=== PATIENT | male | born 1955 | race Caucasian/White ===

== ENCOUNTER 2019-06-26 10:48 | Inpatient (IN) | payer OTHER ==
[2019-06-26] VITALS (43 sets, daily range): BP systolic 74–149; BP diastolic 46–73
[~2019-06-26] VITALS: Ht 188 cm; Wt 71.4 kg
[2019-06-26 11:07] LABS: HEMATOCRIT 46.7 % (42.0-52.0); HEMOGLOBIN 15.6 gm/dL (14.0-18.0); MCH 31.1 pg (26.0-34.0); MCHC 33.4 g/dL (28.0-37.0); PLATELET COUNT 251 thou/uL (150-400); RBC 5.02 mil/uL (4.50-6.00); RDW 14.3 % (10.5-14.5)
[2019-06-26 11:24] LABS: ANION GAP 11 mmol/L (7-16); BUN 22 mg/dL (7-18); CALCIUM 8.8 mg/dL (8.5-10.1); CHLORIDE 96 mmol/L (98-107); CO2 29 mmol/L (21-32); CREATININE 1.1 mg/dL (0.7-1.3); GLUCOSE 117 mg/dL (74-106); POTASSIUM 3.5 mmol/L (3.5-5.1); SODIUM 136 mmol/L (136-145)
[2019-06-26 11:28] LABS: ALBUMIN 1.8 g/dL (3.4-5.0); DIRECT BILIRUBIN 2.1 mg/dL (<0.1-0.3); TOTAL BILIRUBIN 2.4 mg/dL (<0.1-1.0); TOTAL PROTEIN 6.7 g/dL (6.4-8.2)
[2019-06-26 11:32] LABS: TROPONIN-I <0.06 ng/mL (<0.06)
[2019-06-26 11:33] LABS: ABSOLUTE NEUTROPHILS 20.9 thou/uL (1.4-8.2); PLATELET ESTIMATE NORMAL
[2019-06-26 12:08] LABS: APTT 29.3 Seconds (24.5-32.8); INR 1.2; PROTIME 12.8 Seconds (9.3-11.4)
[2019-06-26 12:21] LABS: BE(vivo) -0.8 mmol/L (-2 to +3); HCO3 23.9 mmol/L (22.0-26.0); PCO2 39.5 mmHg (35.0-45.0); PO2 71.2 mmHg (80.0-100.0); pH 7.399 (7.360-7.450); sO2 94.4 % (92.0-98.0)
[2019-06-26 12:24] LABS: AMP/METHAMP POSITIVE (Negative); BARBITURATES Negative (Negative); BENZODIAZEPINES Negative (Negative); COCAINE Negative (Negative); METHADONE Negative (Negative); OPIATES Negative (Negative); PCP Negative (Negative)
[2019-06-26 13:21] LABS: HCO3 24.5 mmol/L (22.0-26.0); PCO2 58.1 mmHg (35.0-45.0); PO2 91.9 mmHg (80.0-100.0); pH 7.242 (7.360-7.450); sO2 95.6 % (92.0-98.0)
[2019-06-26 16:11] LABS: BE(vivo) -3.5 mmol/L (-2 to +3); HCO3 26.6 mmol/L (22.0-26.0); PO2 151.3 mmHg (80.0-100.0); sO2 98.4 % (92.0-98.0)
[2019-06-26 16:12] LABS: PCO2 70.8 mmHg (35.0-45.0); pH 7.192 (7.360-7.450)
--- NOTE | 2019-06-26 16:45 | EKG ---
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
--- NOTE | 2019-06-26 16:45 | EKG ---
[address] [place] [address] ELECTROCARDIOGRAM REPORT Name: PREETIERICK ELLISYN Room #: 247-P ADM IN M.R.#: [id number] Admission: 06/26/19 Attend Phys: Ricarda Phan MD Discharge: Date of : 51 Report #: [id number] THIS REPORT FOR: //name// [facility] ED Test Date: 2019-06-26 Test Time: 11:02:35 Pat Name: ERICK ÁLVAREZ Department: Room: 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 Electronically Signed On 06-26-2019 16:45:35 CDT by Frank Mcgee [email or web address] <ELECTRONICALLY SIGNED> By: Frank Mcgee MD 06/26/19 1645 1102 01 Frank Mcgee MD /BEVERLY
--- NOTE | 2019-06-26 16:46 | EKG ---
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
--- NOTE | 2019-06-26 17:29 | NUR ---
NURSE CALLED CONSULT TO DR. SHARIF. HE RETURNED CALL AND EXPRESSED TO PLEASE CALL DR. DELFINA EDWARDS WHO IS COVERING FOR HIM AT THIS TIME. NURSE CALLED CONSULT TO DR. EDWARDS.
[2019-06-26 17:41] LABS: CLARITY CLOUDY; COLOR YELLOW; SOURCE PLEURAL; TOTAL VOLUME 30 mL
[2019-06-26 17:42] LABS: SOURCE PLEURAL
[2019-06-26 17:48] LABS: BE(vivo) -1.3 mmol/L (-2 to +3); HCO3 25.4 mmol/L (22.0-26.0); PCO2 50.1 mmHg (35.0-45.0); PO2 157.8 mmHg (80.0-100.0); sO2 98.9 % (92.0-98.0)
[2019-06-26 17:49] LABS: URINE BILIRUBIN NEGATIVE (Negative); URINE BLOOD NEGATIVE (Negative); URINE CLARITY CLEAR; URINE COLOR YELLOW; URINE GLUCOSE-RANDOM* NEGATIVE (Negative); URINE KETONES NEGATIVE (Negative); URINE LEUKOCYTES-REFLEX NEGATIVE (Negative); URINE NITRITE-REFLEX NEGATIVE (Negative); URINE PROTEIN (DIPSTICK) NEGATIVE (Negative); URINE SPECIFIC GRAVITY <= 1.005 (1.005-1.035)
[2019-06-26 17:49] LABS: pH 7.323 (7.360-7.450)
[2019-06-26 18:18] LABS: BF NUCLEATED CELLS 57982; BF RBC 19719
--- NOTE | 2019-06-26 18:40 | NUR ---
CONSULTED TO PLACE A PICC FOR A PATIENT NEEDING ACCESS FOR SEPSIS. ORDER AND CONSENT NOTED. CONSENT PER MEDICAL NECESSITY- THE PATIENT IS INTUBATED AND SEDATED AND NO FAMILY AVAILABLE. THE RIGHT UPPER ARM BASILIC WAS WIDLEY PATENT. A #5F TRIPLE LUMEN POWER PICC WAS PLACED AFTER A BEDSIDE TIMEOUT WAS COMPLETED. THE PICC WAS TRIMMED TO 44CM AND ADVANCED WITHOUT DIFFICULTY. A STAT CHEST XRAY CONFIRMED THE LINE TO BE IN GOOD POSITION AT THE LOWER SVC. LINE RELEASED FOR USE
[2019-06-26 19:44] LABS: BF MACROPHAGE 8; BF NEUTROPHILS 84
[2019-06-26 19:52] LABS: CREATININE 1.4 mg/dL (0.7-1.3); POTASSIUM 3.8 mmol/L (3.5-5.1)
--- NOTE | 2019-06-26 21:13 | NUR ---
PATIENT ARRIVED TO ICU AT 1600 TODAY. COMPLETE ADMISSION WAS UNOBTAINABLE SECONDARY TO NO FAMILY CONTACT. FAMILY DID LATER CALL AND CONTACT INFORMATION OBTAINED. ONE IV PRESENT ON TRANSFER TO ICU, NO SWIFT. CLOTHES WERE ON AND PATIENT WAS SATURATED IN URINE. HE WAS CLEANED AND CLOTHES WERE REMOVED. NURSE CALLED DR. HENRIQUEZ FOR CONSULT AND ORDERS RECEIVED. ABG RESULTS WERE NOTED TO DR. HENRIQUEZ AND SEPSIS PROTOCOL WAS INITIATED AT 1640. PICC LINE WAS PLACED. ONCE CONFIRMATION OF PLACEMENT OBTAINED, CVP WAS STARTED. DR. HENRIQUEZ WAS UPDATED ON 3 HOUR SEPSIS ISIS AT 1900 WHEN HE ROUNDED. PROPFOL LOWERED PATIENTS BLOOD PRESSURE SO VERSED WAS USED FOR SEDATION, WHICH DID NOT HELP HIM WITH VENTILATOR MANAGEMENT. PATIENT WAS SEVERLY AGGITATED AND ATTEMPTING TO EXTUBATE HIMSELF AND GET OUT OF BED. VERSED ASSISTED IN HIS COMFORT EVIDENCED BY NONE OF THE PREVIOUS MENTIONED. NURSE TALKED WITH DR. HENRIQUEZ ABOUT LARGE AMOUNT OF INCONTENENCE AND UNABLE TO PLACE SWIFT CATHETER, SECONDARY TO THE TUBE NOT ADVANCING. HE EXPRESSED TO CALL PRIMARY. THIS WAS DONE, DR. CHAUDHARY EXPRESSED TO PLACE A CONDOM CATHETER, WHICH WAS DONE. NO URINE OUTPUT NOTED AFTER THESE EVENTS. BLADDER SCAN WAS PERFORMED AND THE RESULTS WERE 385ML. THIS WAS INFORMED TO DR. HENRIQUEZ WHO EXPRESSED TO NOTIFY PRIMARY. REPORT WAS GIVEN TO REFERRAL MANAGER RN FOR CONTINUATION OF CARE. PATIENT TOO ACUTE TO PROGRESS TOWARDS PLAN OF CARE GOALS OF HEMODYNAMIC STABILITY AND EXTUBATION.
[2019-06-26 21:24] LABS: CALCIUM 7.6 mg/dL (8.5-10.1); POTASSIUM 3.9 mmol/L (3.5-5.1)
[2019-06-27] VITALS (94 sets, daily range): BP systolic 85–116; BP diastolic 50–65
[2019-06-27 01:37] LABS: CALCIUM 7.5 mg/dL (8.5-10.1); CREATININE 1.1 mg/dL (0.7-1.3)
[2019-06-27 05:03] LABS: BE(vivo) -2.5 mmol/L (-2 to +3); HCO3 24.8 mmol/L (22.0-26.0); PCO2 53.4 mmHg (35.0-45.0); PO2 95.1 mmHg (80.0-100.0); pH 7.285 (7.360-7.450); sO2 96.4 % (92.0-98.0)
[2019-06-27 05:11] LABS: GLYCOHEMOGLOBIN (HGB A1C) 5.9 % (4.8-5.6)
[2019-06-27 05:11] LABS: BODY FLUID AMYLASE 28 U/L (()); BODY FLUID GLUCOSE 2 mg/dL (()); BODY FLUID LDH 4957 IU/L (()); BODY FLUID PROTEIN 3.7 g/dL (())
[2019-06-27 05:43] LABS: HEMATOCRIT 38.8 % (42.0-52.0); MCH 31.2 pg (26.0-34.0); MCV 94.7 fL (80.0-100.0); RBC 4.1 mil/uL (4.50-6.00); RDW 14.9 % (10.5-14.5); WBC 16.5 thou/uL (4.0-11.0)
[2019-06-27 06:00] LABS: HEMOGLOBIN 12.8 gm/dL (14.0-18.0)
[2019-06-27 06:06] LABS: HEP B SURFACE Ab(ANTI-HBS Non Reactive (()); HEPATITIS C VIRUS AB >11.0 (0.0-0.9)
[2019-06-27 06:08] LABS: CALCIUM 7.8 mg/dL (8.5-10.1); CREATININE 1.1 mg/dL (0.7-1.3); PHOSPHORUS 5.2 mg/dL (2.5-4.9); POTASSIUM 3.9 mmol/L (3.5-5.1)
--- NOTE | 2019-06-27 06:45 | NUR ---
PT ADMITTED YESTERDAY FOR EMPYEMA. RT PLEURAL CHEST TUBE IN PLACE. PT INTUBATED AND ON VENT; SEDATED WITH FENTANYL, VERSED, AND PROPOFOL GTTS. WITHOUT SUFFICIENT SEDATION, PT IS AGITATED AND IMPULSIVE. PT ALSO ON AMIO AND LEVO GTTS. WILL CONTINUE TO MONITOR.
--- NOTE | 2019-06-27 15:04 | 2DMMODE ---
[facility] [place] [address] 2 D/M-MODE ECHOCARDIOGRAM Name: PREETIERICK REYES Room #: 247-P ADM IN M.R.#: [id number] Admission: 06/26/19 Attend Phys: Ricarda Phan, Discharge: Date of : 51 Report #: [id number] THIS REPORT FOR: //name// APPROVED REPORT Study performed: 06/27/2019 13:57:56 EXAM: Comprehensive 2D, Doppler, and color-flow Echocardiogram Patient Location: ICU Room #: [facility] Status: routine BSA: 2.00 HR: 93 bpm BP: 105/61 mmHg Rhythm: NSR Other Information Study Quality: Adequate/patient on vent/low windows. Technically limited study due to lung disease and thin body habitus. Indications Dyspnea Chest Pain SVT. Hx: Tob, meth, hep C. 2D Dimensions RVDd: 42.39 mm IVSd: 13.00 (7-11mm) LVOT Diam: 23.02 (18-24mm) LVDd: 46.99 mm PWd: 13.00 (7-11mm) LVDs: 29.19 (25-40mm) Aortic Root: 41.86 mm Volumes Left Atrial Volume (Systole) Single Plane 4CH: 44.94 mL Single Plane 2CH: 47.43 mL LA ESV Index: 26.00 mL/m2 Aortic Valve AoV Peak Hardy.: 1.41 m/s AO Peak Gr.: 7.97 mmHg LVOT Max P.37 mmHg LVOT Max V: 1.05 m/s RAMONA Vmax: 3.[address] [facility] [address] [place] [address] 2 D/M-MODE ECHOCARDIOGRAM Name: ERICK ÁLVAREZ Room #: 247-P [facility] IN [facility].#: [id number] Admission: 06/26/19 Attend Phys: Ricarda Phan, Discharge: Date of : 51 Report #: [id number] AI Vmax: 3.94 m/s AI Greer: 3.07 m/s2 AI PHT: 372.63 ms Mitral Valve E/A Ratio: 0.6 MV Decel. Time: 216.44 ms MV E Max Hardy.: 0.44 m/s MV A Hardy.: 0.70 m/s MV PHT: 62.77 ms IVRT: 89.97 ms Pulmonary Valve PV Peak Hardy.: 0.91 m/s PV Peak Gr.: 3.29 mmHg Tricuspid Valve TR Peak Hardy.: 2.90 m/s RAP Estimate: 15.00 mmHg TR Peak Gr.: 33.00 mmHg PA Pressure: 48.00 mmHg Left Ventricle The left ventricle is normal size. Mild concentric left ventricular hypertrophy. Left ventricular systolic function is mildly decreased. LVEF is 45-50%. Mild diastolic dysfunction is present (impaired relaxation pattern). Right Ventricle The right ventricle is normal size. The right ventricular systolic function is normal. Atria The left atrium size is normal. The right atrium size is normal. Aortic Valve The aortic valve is normal in structure. Moderate aortic regurgitation. There is no aortic valvular stenosis. Mitral Valve The mitral valve is normal in structure. There is no mitral valve regurgitation noted. No evidence of mitral valve stenosis. Tricuspid Valve The tricuspid valve is normal in structure. Estimated PAP is 45-50mmHg. Mild to moderate tricuspid regurgitation. [facility] [place] [address] 2 D/M-MODE ECHOCARDIOGRAM Name: ERICK ÁLVAREZ Room #: 247-P [facility] IN M.R.#: [id number] Admission: 06/26/19 Attend Phys: Ricarda Phan, Discharge: Date of : 51 Report #: [id number] Pulmonic Valve The pulmonary valve is normal in structure. There is no pulmonic valvular regurgitation. Great Vessels Aortic root is dilated at 4.2cm. Ascending aorta is not well visualized. IVC is dilated and collapses <50% with inspiration. Pericardium There is no pericardial effusion. <Conclusion> The left ventricle is normal size. LVEF is 45-50%. The left atrium size is normal. The aortic valve is normal in structure. Moderate aortic regurgitation. There is no aortic valvular stenosis. The mitral valve is normal in structure. The tricuspid valve is normal in structure. Estimated PAP is 45-50mmHg. Mild to moderate tricuspid regurgitation. The pulmonary valve is normal in structure. Aortic root is dilated at 4.2cm. There is no pericardial effusion. <ELECTRONICALLY SIGNED> By: Nickolas Wilson MD 06/27/19 1504 1504 1504 Nickolas Wilson MD /INF
--- NOTE | 2019-06-27 19:22 | NUR ---
ASSUMED CARE 06/27/19, PT ASSESSMENTS AND VSS COMPLETE PER ICU PROTOCOL. PT TRANSPORTED DOWN TO CT, NO COMPLICATIONS NOTED. SISTER NOBLE, NEXT OF KIN GIVES RN VERBAL CONSENT FOR POSSIBLE VAT PROCEDURE, THIS IS ALSO WITNESSED BY ANDREAS FERREIRA. PT'S SIGNIFICANT OTHER CAME TO VISIT WITH PT, RN REFUSES TO GIVEN INFORMATION ABOUT PT AND RN EXPLAINS THIS TO THE SIGNIFICANT OTHER. PLAN OF CARE- CONT TO MONITOR.
[2019-06-28] VITALS (49 sets, daily range): BP systolic 94–139; BP diastolic 51–73
[2019-06-28 03:10] LABS: HEPATITIS B SURFACE AG Negative (Negative)
[2019-06-28 05:49] LABS: ABSOLUTE NEUTROPHILS 13.8 thou/uL (1.4-8.2); BASOPHILS 0.2 % (0.0-2.0); HEMATOCRIT 34.9 % (42.0-52.0); HEMOGLOBIN 11.6 gm/dL (14.0-18.0); LYMPHOCYTES 4.7 % (24.0-44.0); MCH 31.5 pg (26.0-34.0); MCHC 33.3 g/dL (28.0-37.0); MCV 94.4 fL (80.0-100.0); MONOCYTES 3.6 % (1.0-8.0); PLATELET COUNT 231 thou/uL (150-400); POLYS 91.5 % (36.0-66.0); RDW 14.8 % (10.5-14.5); WBC 15.1 thou/uL (4.0-11.0)
[2019-06-28 06:08] LABS: ALBUMIN 1.1 g/dL (3.4-5.0); CALCIUM 7.6 mg/dL (8.5-10.1); MAGNESIUM 2.2 mg/dL (1.8-2.4); PHOSPHORUS 3.8 mg/dL (2.5-4.9); POTASSIUM 3.8 mmol/L (3.5-5.1); TOTAL BILIRUBIN 0.9 mg/dL (<0.1-1.0); TOTAL PROTEIN 5.2 g/dL (6.4-8.2)
--- NOTE | 2019-06-28 07:28 | NUR ---
NO OVERNIGHT EVENTS. REMAINS INTUBATED AND ON VENT. ON FENTANYL, VERSED, AND PROPOFOL GTTS FOR SEDATION; DOES NOT TOLERATE SEDATION VACATION--BECOMES AGITATED AND IMPULSIVE. WILL CONTINUE TO MONITOR.
--- NOTE | 2019-06-28 11:51 | HC ---
[facility] [place] [address] [place] [address] CONSULTATION Name: ERICK ÁLVAREZ Room #: 247-P ADM IN M.R.#: [id number] Admission: 06/26/19 Attend Phys: Ricarda Phan MD Discharge: Date of : 51 Report #: [id number] THIS REPORT FOR: //name// CC: Sky William [facility] physician/PCP Mina Rhoades DATE OF SERVICE: 06/26/2019 We were asked to see the patient by the Emergency Room physician. HISTORY OF PRESENT ILLNESS: The patient is a 63-year-old with shortness of breath and a large loculated right pleural effusion. The patient states that the last time he felt well, was approximately 1 week ago. Since that time, the patient has had development of shortness of breath and cough. The patient states to me that the shortness of breath grew rapidly worse over the last 2 days. The patient describes pressure in his chest as well that does not seem to radiate in any direction. The patient also describes fatigue and diaphoresis. The patient states that he uses IV methamphetamine and most recently used approximately 3 days ago. PAST HISTORY: Significant for hepatitis C. The patient denies other chronic problems such as hypertension and diabetes to me. PAST SURGICAL HISTORY: The patient denies having any important surgery in the past. ALLERGIES: Claims to be ALLERGIC TO DIPHENHYDRAMINE. SOCIAL HISTORY: Positive for tobacco use. 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 REVIEW OF SYSTEMS: Gleaned from the chart as the patient is acutely short of breath. CONSTITUTIONAL: Negative for fever or chills. EYES: Negative for eye pain or visual change. HEENT: Negative for rhinorrhea, sore throat. RESPIRATORY: As mentioned, positive for shortness of breath. CARDIAC: As mentioned, positive for chest pressure. No palpitations. GASTROINTESTINAL: Negative for abdominal pain, nausea, vomiting. [facility] [address] [place] [address] CONSULTATION Name: ERICK ÁLVAREZ Room #: [facility] IN [facility]#: [id number] Admission: 06/26/19 Attend Phys: Ricarda Phan MD Discharge: Date of : 51 Report #: [id number] GENITOURINARY: Negative for burning or frequency. MUSCULOSKELETAL: Has chest pain, but no specific bone or joint pain. SKIN: No rash or infection. NEUROLOGIC: No motor or sensory dysfunction. ENDOCRINE: No tremor, no goiter. HEMATOLOGIC AND LYMPHATIC: No bleeding or bruising. PHYSICAL EXAMINATION: VITAL SIGNS: Temperature 36.7, pulse 114, respiratory rate 20, O2 sat 98, blood pressure 119/72. The patient is on 4 liters of oxygen. GENERAL: When seen, the patient was in a gurney, anxious and short of breath, with accessory muscle use in respirations. The patient has an ectomorphic habitus. HEENT: No scleral icterus, no arcus. Mouth, multiple caries, small carious teeth. NECK: No mass, no bruit. CHEST: Decreased breath sounds, right side, with some crackles audible. Left is clear. HEART: Regular rhythm. No murmurs. ABDOMEN: Soft. EXTREMITIES: No clubbing, cyanosis or edema. SKIN: No rash or infection. NEUROLOGIC: No obvious motor or sensory dysfunction. CT scan shows what appears to be a loculated pleural effusion. IMPRESSION: The patient appears to be acutely short of breath. As a result of this, I suspect that this is a parapneumonic effusion. The patient appears short of breath enough to mandate intubation. Once this is stabilized, it would be reasonable to try to place a pleural catheter. If this catheter does not drain, then we will take the patient to the operating room tomorrow for bronchoscopy, video-assisted thoracoscopy and possible thoracotomy with decortication. The risks and details of this were discussed with the patient who understands and wishes we proceed with anything that will improve his respiratory function. Thank you for the consult. <ELECTRONICALLY SIGNED> By: Mina Higuera MD 06/28/19 1151 [id number] [id number] Mina Higuera MD /nt
[2019-06-29] VITALS (48 sets, daily range): BP systolic 101–142; BP diastolic 53–75
--- NOTE | 2019-06-29 05:27 | NUR ---
NO OVERNIGHT EVENTS. PT. HARD TO WEAN OFF PROPOFOL, CONTINUES TO GET AGITIATED AND PULL AT RESTRAINTS, DOES NOT FOLLOW COMMANDS. MEDICATION TITRATION CHARTED. ASSESSMENTS AND VITAL SIGNS CHARTED. CONTINUE TO FOLLOW POC. WILL CONTINUE TO MONITOR.
[2019-06-29 06:20] LABS: HEMATOCRIT 36.1 % (42.0-52.0); HEMOGLOBIN 11.7 gm/dL (14.0-18.0); MCH 30.4 pg (26.0-34.0); MCHC 32.3 g/dL (28.0-37.0); MCV 94.1 fL (80.0-100.0); RBC 3.84 mil/uL (4.50-6.00); RDW 14.8 % (10.5-14.5); WBC 14.1 thou/uL (4.0-11.0)
[2019-06-29 08:33] LABS: CALCIUM 8.2 mg/dL (8.5-10.1); CREATININE 0.9 mg/dL (0.7-1.3); MAGNESIUM 2.5 mg/dL (1.8-2.4); PHOSPHORUS 3.9 mg/dL (2.5-4.9)
--- NOTE | 2019-06-29 15:30 | NUR ---
DR. HENRIQUEZ HERE. STATES HE WILL NOT DO WEANING TRIAL TODAY SINCE PT NOT FOLLOWING ANY COMMANDS. GENERAL UPDATE GIVEN. WILL START TUBE FEEDING.
[2019-06-29 17:21] LABS: SYPHILIS AB Negative (Negative)
[2019-06-30] VITALS (26 sets, daily range): BP systolic 91–138; BP diastolic 51–75
--- NOTE | 2019-06-30 04:10 | NUR ---
NO OVERNIGHT EVENTS. PT. CONTINUES TO BE HARD TO WEAN OFF SEDATION. MEDICATION TITRATION CHARTED. ASSESSMENTS AND VITAL SIGNS CHARTED. CONTINUE TO FOLLOW POC. WILL CONTINUE TO MONITOR.
[2019-06-30 05:42] LABS: HEMATOCRIT 35.5 % (42.0-52.0); HEMOGLOBIN 11.8 gm/dL (14.0-18.0); MCH 31.4 pg (26.0-34.0); MCHC 33.4 g/dL (28.0-37.0); MCV 94.2 fL (80.0-100.0); RBC 3.77 mil/uL (4.50-6.00); RDW 14.6 % (10.5-14.5); WBC 8.9 thou/uL (4.0-11.0)
[2019-06-30 05:55] LABS: CALCIUM 7.8 mg/dL (8.5-10.1); CREATININE 0.8 mg/dL (0.7-1.3); PHOSPHORUS 2.8 mg/dL (2.5-4.9); POTASSIUM 4.4 mmol/L (3.5-5.1)
[2019-06-30 08:49] LABS: BE(vivo) 5.3 mmol/L (-2 to +3); HCO3 32.2 mmol/L (22.0-26.0); PCO2 56.9 mmHg (35.0-45.0); PO2 79.3 mmHg (80.0-100.0); sO2 95.2 % (92.0-98.0)
--- NOTE | 2019-06-30 14:06 | NUR ---
CM ASSESSMENT: CASE OPENED FOR DC PLANNING. CLINICAL INFO REVIEWED. PT ADMITTED WITH CHEST PAIN, FOUND TO HAVE EMPYEMA AND CHEST TUBE PLACED. REQUIRED INTUBATION DAY OF ADMIT AND REMAINS ON VENT R/T ENCEPHALOPATHY. HX HEP C AND DRUG SCREEN POSITIVE FOR METH. UNABLE TO COMMUNICATE WITH PT. PT HAS 2 SISTERS, CALLED AND LEFT FOR LOCAL SISTER, JAYLYN AND SPOKE WITH SISTER NOBLE, LIVING IN [place] WITH PLANS TO COME TO R/T PT'S HOSPITALIZATION/ILLNESS. 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 [facility] IS ON PT'S FRIEND [employer] AND ELLIOT BROUGHT PT TO ER. NOBLE INDICATES PT WILL NOT BE ABLE TO RETURN TO [facility] AND PT'S FRIENDS HAVE AGREED TO LET HIM LIVE WITH THEM AT DISCHARGE. CM CONTACT # PROVIDED TO NOBLE. PT WILL NEED THERAPY EVALS WHEN EXTUBATED TO ASSESS AND PHYSICAL REHAB NEEDS. [employer]
--- NOTE | 2019-06-30 17:03 | NUR ---
PT REMAINS ON THE VENT. DOESNT FOLLOW ANY COMMMANDS. PLACED ON PRECEDEX TODAY OFF PROPOFOL. REMAINS ON VERSED AND FENTANYL DRIP FOR SEDATION. AT TIMES HE CAN BE AGITATED AND RESTLESS. BILATERAL WRIST RESTRAINTS AT THIS TIME. VS STABLE. CHEST TUBE DRAINING YELLOW THICK DRAINIAGE. AND SWIFT TO DD WTIH GOOD URINE PRESENT. TOLERATING TUBE FEEDING WELL NO RESIDUAL NOTED. WILL CONTINUE TO ASSESS AND MONITOR PER NURSING.
--- NOTE | 2019-06-30 17:51 | HC ---
[facility] [place] [address] CONSULTATION Name: ERICK ÁLVAREZ Room #: 247-P ADM IN M.R.#: [id number] Admission: 06/26/19 Attend Phys: Ricarda Phan MD Discharge: Date of : 51 Report #: [id number] THIS REPORT FOR: //name// CC: Sky HERNANDEZ physician/PCP Mina Rhoades DATE OF SERVICE: 06/26/2019 REASON FOR CONSULTATION: Evaluate right chest empyema. HISTORY OF PRESENT ILLNESS: The patient is a 63-year-old who was evaluated in the Intensive Care Unit on the ventilator, sedated. History was gleaned from medical record and discussion with nursing staff in attendance. He has underlying hepatitis C and IV drug use history. Screening positive for methamphetamines. Reportedly, living in a barn, fairly recluse. Onset yesterday of right-sided chest pain and progressive shortness of breath. No hemoptysis. Due to his progressive shortness of breath, he presented to the Emergency Room driven him by his landlord. Due to his progressive shortness of breath, he was intubated and placed on mechanical ventilation. Chest x-ray and CT scan showed evidence of right chest empyema with air evident in the pleural space. Chest tube was placed. Purulent material has been evacuated. Hemodynamically, he has remained stable. It is unclear if the patient has had any syncopal episodes or how much alcohol he uses. He does smoke cigarettes. ALLERGIES: BENADRYL with tachycardia. MEDICATIONS: None prior to his admission, currently on vancomycin and Zosyn. PAST MEDICAL HISTORY: Hepatitis C, IV drug use, tobacco use, otherwise no further details available. FAMILY HISTORY: Not available. SOCIAL HISTORY: As noted above. Unclear if he has any other HIV risk factors. Unclear if he has had any tuberculosis history. REVIEW OF SYSTEMS: Unable to obtain from the patient who is intubated and sedated. PHYSICAL EXAMINATION: VITAL SIGNS: Afebrile and hemodynamically stable. He is now on amiodarone drip. He was having supraventricular tachycardia. He is afebrile, heart rate was 108, blood pressure 101/61. He has been on fentanyl and Versed drip. [address] [address] CONSULTATION Name: ERICK ÁLVAREZ Room #: 247-P [facility] IN M.R.#: [id number] Admission: 06/26/19 Attend Phys: Ricarda Phan MD Discharge: Date of : 51 Report #: [id number] GENERAL: He was cachectic. Had facial temporal wasting. HEENT: Eyes, without scleral icterus. Mouth: Dentition in very poor repair with dental caries, multiple teeth missing. NECK: Supple. No thyromegaly or mass. No palpable adenopathy. No rashes or decubiti. LUNGS: Coarse breath sounds in the right chest. CHEST: Left chest was clear. Right chest tube in place with purulent fluid in the drain. HEART: Tachycardic and regular. ABDOMEN: Soft and nontender with no hepatosplenomegaly or mass appreciated. He does have inguinal hernias. GENITOURINARY: External genitalia without other masses or lesions. RECTAL: Not performed. EXTREMITIES: No clubbing, cyanosis or edema. He was obtunded on sedation while intubated. IV site without erythema. He was moving all 4 extremities. LABORATORY STUDIES: Lactic acid 1.9. Sodium 140, potassium 3.9, bicarbonate 30, creatinine 1. Fluid analysis from the right chest is pending. Chest x-ray shows right-sided PICC in good position. Right lower lobe infiltrate with effusion. Urinalysis unremarkable. HIV screen negative. TSH 1.5. Drug screen with methamphetamines positive. CT scan of the chest, large loculated appearing gas containing right pleural effusion consistent with empyema and associated compressive atelectasis of the right lung. Hemoglobin 15.6, white count 24,000, platelet 251,000, 17% bands. IMPRESSION: A 63-year-old methamphetamine user, malnutrition with dental caries and right lung empyema. High likelihood this is related to an aspiration pneumonia. Still need to await culture results. Agree with broad-spectrum antibiotic therapy pending these results. Not a typical presentation for viral or atypical bacterial pneumonitis. So far no history of tuberculosis or other travel history. His HIV serologies negative. RECOMMENDATIONS: We will continue broad antibiotic coverage, pending culture results. We will send fluid off for bacteria, fungus and AFB. Check tuberculosis screen. Noted the patient has history of hepatitis C, untreated. Also, screen for hepatitis B and syphilis. Continue with nutritional support. Thoracic Surgery has evaluated and plans on further intervention tomorrow. <ELECTRONICALLY SIGNED> By: Gino Hager MD 06/30/19 [phone] Gino Hager MD /nt
[2019-07-01] VITALS (24 sets, daily range): BP systolic 93–156; BP diastolic 54–80
--- NOTE | 2019-07-01 00:30 | NUR ---
Pt had > 400 cc residual prior to giving midnight water bolus. Water bolus held and tube feeding stopped for now. Plan to hold tube feeding until a.m. and have doctor assess pt for possible gut motility agent. No s/s of aspiration. Breath sound remain clear, diminished at bases. Suctioned pt with only scant amount of clear secretions obtained.
--- NOTE | 2019-07-01 02:17 | NUR ---
Pt very restless, O2 sat decreased to 88% due to patient twisting head and biting ET tube. Pt given Versed 2 mg IVP without any effect. Versed gtt increased to 6 mg/hr and pt calmed down after 5 minutes. Sat back up to 95%.
[2019-07-01 05:43] LABS: HEMATOCRIT 37.1 % (42.0-52.0); HEMOGLOBIN 12.3 gm/dL (14.0-18.0); MCH 31.2 pg (26.0-34.0); MCHC 33.1 g/dL (28.0-37.0); MCV 94.4 fL (80.0-100.0); RBC 3.93 mil/uL (4.50-6.00); RDW 14.8 % (10.5-14.5); WBC 9.3 thou/uL (4.0-11.0)
[2019-07-01 05:50] LABS: CALCIUM 8.2 mg/dL (8.5-10.1); CREATININE 0.7 mg/dL (0.7-1.3); MAGNESIUM 1.9 mg/dL (1.8-2.4); PHOSPHORUS 3.2 mg/dL (2.5-4.9); POTASSIUM 4.7 mmol/L (3.5-5.1)
--- NOTE | 2019-07-01 16:00 | NUR ---
REMAINS ON THE VENT. TRYIED TO BACK OFF SEDATION BUT PATIENT SITS STRIGHT UP IN BED AND TRIES TO SELF EXTUBAITE HIMSELF. SEDATION REAMINS ON . PT DOES NOT FOLLOW ANY COMMANDS WHEN SEDATION IS LIGHTENED UP. NO PURPOSEFUL COMMANDS NOTED. TURN Q 2 HOURS. RIGHT PLEAUAL CHEST TUBE.. SCDS ON BILATERAL. TUBE FEEDING OFF DUE TO HIGH REIDUAL NOTED. VS STABLE WILL CONTINUE TO ASSESS AND MONITOR PER JACOBO. AT THIS TIME
[2019-07-02] VITALS (13 sets, daily range): BP systolic 100–117; BP diastolic 60–67
[2019-07-02 05:29] LABS: HEMATOCRIT 37.4 % (42.0-52.0); HEMOGLOBIN 12.5 gm/dL (14.0-18.0); MCH 31.3 pg (26.0-34.0); MCHC 33.4 g/dL (28.0-37.0); RBC 3.99 mil/uL (4.50-6.00); RDW 14.4 % (10.5-14.5); WBC 8.7 thou/uL (4.0-11.0)
--- NOTE | 2019-07-02 05:42 | NUR ---
NO OVERNIGHT EVENTS. VSS. MEDICATION TITRATION CHARTED. ASSESSMENTS AND VITAL SIGNS CHARTED. CONTINUE TO FOLLOW POC. WILL CONTINUE TO MONITOR.
[2019-07-02 05:46] LABS: CALCIUM 8.4 mg/dL (8.5-10.1); CREATININE 0.6 mg/dL (0.7-1.3); MAGNESIUM 1.8 mg/dL (1.8-2.4); PHOSPHORUS 3.3 mg/dL (2.5-4.9); POTASSIUM 4.7 mmol/L (3.5-5.1)
--- NOTE | 2019-07-02 15:12 | NUR ---
ALYCIA FOR DC PLANNING. CLNICAL INFO REVIEWED. REMAINS ON VENT AND VERSED AND FENT GTTS. AGITATED WHEN SEDATION LIGHTENED. CHEST TUBE REMAINS. NOT READY TO WEAN R/T ENCEPHALOPATHY. PT'S SISTER NOBLE CALLED CM REQUESTING UPDATE AND PROVIDED. SHE WILL CALL OTHER FAMILY TO UPDATE. UNCLEAR DC PLAN AT PRESENT.
--- NOTE | 2019-07-02 16:50 | NUR ---
REMAINS ON THE VENT. VS STABLE. SINUS BRADYCARDIA ON THE MONITOR BLOOD PRESSURE IS STABLE. LUNGS ARE CLEAR TO DIMINISHED. ABDOMEN BOWEL SOUNDS HYPOACTIVE AND FLAT. TURN QU 2 HOURS AND REPOSITION. SUCTION MINIMAL SECREATIONS NOTED. REMAINS IN BILATERAL WRIST RESTRAINTS. REMAINS ON SEDATION. NO PURPOSEFULL RESPONSE WITH A SEDATION VACATION. HE BEGINS TO BECOME RESTLESS AND AGITATED BUT NOT FOLLOWING ANY COMAMDS. WILL CONTINUT TO ASSESS AND MONITOR PER NURSING
[2019-07-03] VITALS (24 sets, daily range): BP systolic 99–133; BP diastolic 41–73
[2019-07-03 05:49] LABS: ABSOLUTE NEUTROPHILS 6.8 thou/uL (1.4-8.2); BASOPHILS 0.4 % (0.0-2.0); EOSINOPHILS 0.2 % (0.0-3.0); HEMATOCRIT 39.4 % (42.0-52.0); LYMPHOCYTES 12.1 % (24.0-44.0); MCH 31.3 pg (26.0-34.0); MCHC 33.1 g/dL (28.0-37.0); MCV 94.7 fL (80.0-100.0); MONOCYTES 4.8 % (1.0-8.0); PLATELET COUNT 195 thou/uL (150-400); POLYS 82.5 % (36.0-66.0); RBC 4.16 mil/uL (4.50-6.00); RDW 14.6 % (10.5-14.5); WBC 8.2 thou/uL (4.0-11.0)
[2019-07-03 06:13] LABS: ALBUMIN 1.2 g/dL (3.4-5.0); CALCIUM 8.5 mg/dL (8.5-10.1); CREATININE 0.7 mg/dL (0.7-1.3); MAGNESIUM 1.8 mg/dL (1.8-2.4); PHOSPHORUS 3.6 mg/dL (2.5-4.9); POTASSIUM 4.6 mmol/L (3.5-5.1); TOTAL BILIRUBIN 0.7 mg/dL (<0.1-1.0); TOTAL PROTEIN 5.3 g/dL (6.4-8.2)
--- NOTE | 2019-07-03 11:16 | NUR ---
Nutrition: Intubated w/ inability to tolerate tube feeds. Suggest re try as appropriate or start Standard TPN to slowly reach goal rate of 90 mL/hr. Pt with severe malnutrition.
--- NOTE | 2019-07-03 13:29 | NUR ---
Attempting to wean down sedation, currently Fentanyl gtt at 50 mcg/hr, Precedex at 1 mcg/kg/hr, and Versed down to 2mg/hr. Pt awake and restless, attempting to get out of wrist restraints. Sitting up in bed. Tachypneic. Trying to tongue out ETT. Pt shaking head no but does not nod head yes/no to questioning. Moving all extremities. Versed gtt turned back up to 3mg/hr.
--- NOTE | 2019-07-03 18:33 | NUR ---
Pt remains agitated with reduction in sedation. Pt currently on Precedex gtt at 1.4 mcg/kg/hr, Versed gtt back up to 3 mg/hr, Fentanyl gtt at 50 mcg/hr. Pt very strong when agitated, fighting restraints and attempting to remove ETT. Pt does not redirect or follow commands. Tolerating Jevity 1.5 at 30ml/hr thus far; previously held d/t high residuals. Minimal progress towards discharge goals. Will continue to monitor.
[2019-07-04] VITALS (23 sets, daily range): BP systolic 87–174; BP diastolic 48–84
[2019-07-04 08:31] LABS: BE(vivo) 6.7 mmol/L (-2 to +3); HCO3 32.2 mmol/L (22.0-26.0); PO2 80.1 mmHg (80.0-100.0); pH 7.435 (7.360-7.450)
--- NOTE | 2019-07-04 10:45 | NUR ---
Pt able to follow commands. Gesturing that he wants ETT out. Dr. Torres called to see if we can proceed with weaning trial. Fentanyl and Versed turned off. Precedex gtt remains on as pt very anxious; aware.
--- NOTE | 2019-07-04 11:00 | NUR ---
Recommend a TF formula change to an elementa formula of Vital High protein at 30ml/hr. Recommend consider scheduled promotility agent
[2019-07-04 11:57] LABS: BE(vivo) 6.9 mmol/L (-2 to +3); HCO3 30.7 mmol/L (22.0-26.0); PCO2 40.7 mmHg (35.0-45.0); pH 7.496 (7.360-7.450)
--- NOTE | 2019-07-04 12:15 | NUR ---
CPAP trial abg obtained and called to Dr. Torres. Dr Torres rounded on patient at 12:15. Pt status discussed with Dr. Torres and Vicente URBINA. Decision made to extubate patient.
--- NOTE | 2019-07-04 12:35 | NUR ---
Extubated per RT to 2L NC. Pt able to speak. Bilateral soft wrist restraints remain in place as pt remains impulsive and right lateral chest tube remains in place. OG tube removed with extubation.
--- NOTE | 2019-07-04 16:29 | NUR ---
PT EXTUBATED TODAY, REMAINS ON PRECEDEX GTT AT 1/4 MCG AND SOFT WRIST RESTRAINTS TO PROTECT CHEST TUBE. NEEDS THERAPY EVAL WHEN ABLE TO COOPERATE. DR. CHAUDHARY PROVIDED WITH BOTH SISTERS CONTACT NUMBERS SHE WAS GOING TO CALL FAMILY TO UPDATE TODAY.
--- NOTE | 2019-07-04 18:00 | NUR ---
Pt banging PICC line site against siderail. Bleeding noted from insertion site. Line remains intact. Pressure dressing placed. Full bath and linen change given. Pt intermittently combative despite Precedex gtt at 1.4 mcg/kg/hr kicking, swinging and spitting at nurses. Pt yelling obscenities. Bilateral soft wrist restraints remain in place as pt attempting to pull out right lateral CT and lubin catheter.
[2019-07-05] VITALS (29 sets, daily range): BP systolic 104–151; BP diastolic 55–79
--- NOTE | 2019-07-05 04:13 | NUR ---
PT. HAS BURSTS OF AGITATION AND RESTLESSNESS MAKING IT DIFFICULT TO TITRATE PRECEDEX. PT. IS STILL VERY CONFUSED, BUT WILL FOLLOW COMMANDS. ONLY OREINTED TO SELF. PT. NEEDS CONSISTENT OBSERVATION FOR SAFETY OF SELF AND STAFF. VSS. MEDICATION TITRATION CHARTED. ASSESSMENTS AND VITAL SIGNS CHARTED. CONTINUE TO FOLLOW POC. WILL CONTINUE TO MONITOR.
--- NOTE | 2019-07-05 10:18 | NUR ---
CHEST TUBE REMOVED PER DR. MELISSA. POST PROCEDURE CHEST X-RAY COMPLETED, NO SIGN OF DIFFICULTY BREATHING.
--- NOTE | 2019-07-05 16:30 | NUR ---
PATIENT ALERT TO SELF AND PLACE ONLY, NO COMPLAINTS OF PAIN. PRECIDEX DRIP WEANED OFF AT [address] ORDER, PATIENT INTERMITTENTLY ANXIOUS AT TIMES, ABLE TO REDIRECT PATIENT ACCORDINGLY. SWIFT PATENT WITH ADEQUATE OUTPUT. NO SIGNS OF ACUTE DISTRESS NOTED AT THIS TIME. WILL CONTINUE TO MONITOR.
[2019-07-05 20:54] LABS: CALCIUM 8.7 mg/dL (8.5-10.1); CREATININE 0.6 mg/dL (0.7-1.3); MAGNESIUM 1.6 mg/dL (1.8-2.4); POTASSIUM 3.5 mmol/L (3.5-5.1)
--- NOTE | 2019-07-05 23:43 | NUR ---
At 2019 pt in Afib HR 130's t0 170's. EKG done confirms Afib. Notified ELECTRIC FREIGHT CAR OPERATOR Coniglio, diltiazem and labs were ordered, and orders were carried out. AT 2219 pt HR going up to 140's, with diltaizem drip at max/20mg/hr, Lopressor given x1 per ELECTRIC FREIGHT CAR OPERATOR's orders and mag was replaced see emar. Currently pt in NSR hr 80 bp 112/55, will continue to monitor.
[2019-07-06] VITALS (24 sets, daily range): BP systolic 99–154; BP diastolic 54–68
[2019-07-06 06:29] LABS: HEMATOCRIT 40.8 % (42.0-52.0); HEMOGLOBIN 13.5 gm/dL (14.0-18.0); MCH 30.9 pg (26.0-34.0); MCHC 33.1 g/dL (28.0-37.0); MCV 93.4 fL (80.0-100.0); RBC 4.37 mil/uL (4.50-6.00); RDW 14.5 % (10.5-14.5); WBC 16.7 thou/uL (4.0-11.0)
[2019-07-06 06:57] LABS: CALCIUM 8.2 mg/dL (8.5-10.1); CREATININE 0.7 mg/dL (0.7-1.3); MAGNESIUM 1.7 mg/dL (1.8-2.4); POTASSIUM 3.2 mmol/L (3.5-5.1)
--- NOTE | 2019-07-06 07:25 | NUR ---
RESTRAINTS DISCONTINUED AT 0545. PT ALERT AND ORIENTED X4, HAS NOT BEEN INTERFERRING WITH MEDICAL EQUIPMENT, PT IS CALM AND IS COOPEARTING WELL WITH THE PLAN TO DC RESTRAINTS.
--- NOTE | 2019-07-06 07:28 | NUR ---
PT'S SISTER IVAN THAT LIVES IN [place] CALLED LAST NIGHT CONCERNED ABOUT PT. SHE STATED THAT PT HAD BEEN "CLEAN FROM DRUGS" THE PAST 15YRS, SHE SAID THAT THE PT IS THE ONE THAT TAKES CARE OF THEIR MOM WHO LIVES IN [place], STATING THAT HE CHECKS ON HER EVERYDAY. IVAN SAID SHE WAS NOT AWARE THAT HE IS "USING AGAIN". SHE MENTIONED SHE IS COMING TO [facility].
--- NOTE | 2019-07-06 14:20 | NUR ---
SPOKE WITH DR. CHAUDHARY ABOUT TRANSFERRING PATIENT. DR. CHAUDHARY WOULD LIKE PATIENT TO BE MONITORED OVER NIGHT IN ICU AND POSSIBLE TRANSFER TOMORROW.
--- NOTE | 2019-07-06 19:38 | NUR ---
PATIENT ALERT AND ORIENTED X4, RESTRAINTS AND PRECEDEX WEANED OFF. PATIENT PLEASENT THROUGHOUT THE SHIFT, SHOWED NO SIGNS OF IRRITATION TO REQUIRE RE-RESTRAINED. SINUS RHYTHM TO SINUS TACHYCARDIA ON MONITOR, CARDIZEM DRIP WEANED OFF, PRN METOPROLOL FOR HEART RATE CONTROL PER CARDIOLOGY. PATIENT TOLERATING REGULAR DIET, UNABLE TO FEED SELF AT THIS MOMENT DUE TO WEAKNESS. PT/OT EVALUATION ORDERED. SWIFT PATENT AND DRAINING. PLAN OF CARE IS TO MONITOR PATIENT IN ICU OVERNIGHT AND TRANSFER TOMORROW. SPOKE WITH SISTER AT THE BEDSIDE, SHE STATED PATIENT WAS CLEAN OF METH FOR 15 YEARS. NO SIGN OF ACUTE DISTRESS NOTED AT THIS TIME WILL CONTINUE TO MONITOR.
[2019-07-07] VITALS (22 sets, daily range): BP systolic 103–133; BP diastolic 59–84
--- NOTE | 2019-07-07 05:28 | NUR ---
NO OVERNIGHT EVENTS. PT. REMAINED ALERT, ORIENTEDX4, AND PLEASANT. ASSESSMENTS AND VITAL SIGNS CHARTED. PT. IN AND OUT OF AFIB AT BEGINNING OF SHIFT, IS NSR NOW. CARDIOLOGY AWARE. PT. IS PROGRESSING TOWARDS GOALS. SHOULD BE A CANDIDATE FOR TRANSFER TODAY. WILL CONTINUE TO MONITOR.
[2019-07-07 05:35] LABS: BASOPHILS 0.9 % (0.0-2.0); EOSINOPHILS 0.3 % (0.0-3.0); HEMATOCRIT 38.3 % (42.0-52.0); HEMOGLOBIN 12.7 gm/dL (14.0-18.0); LYMPHOCYTES 10.5 % (24.0-44.0); MCH 31.2 pg (26.0-34.0); MCV 94.3 fL (80.0-100.0); PLATELET COUNT 179 thou/uL (150-400); POLYS 80.3 % (36.0-66.0); RBC 4.06 mil/uL (4.50-6.00); RDW 14.3 % (10.5-14.5); WBC 11.2 thou/uL (4.0-11.0)
[2019-07-07 06:05] LABS: ALBUMIN 1.3 g/dL (3.4-5.0); CALCIUM 7.7 mg/dL (8.5-10.1); CREATININE 0.6 mg/dL (0.7-1.3); MAGNESIUM 1.6 mg/dL (1.8-2.4); PHOSPHORUS 1.4 mg/dL (2.5-4.9); POTASSIUM 3.1 mmol/L (3.5-5.1); TOTAL BILIRUBIN 1.4 mg/dL (<0.1-1.0); TOTAL PROTEIN 5.3 g/dL (6.4-8.2)
--- NOTE | 2019-07-07 09:10 | EKG ---
[address] [place] [address] ELECTROCARDIOGRAM REPORT Name: ERICK ÁLVAREZ Room #: 247-P ADM IN M.R.#: [id number] Admission: 06/26/19 Attend Phys: Ricarda Phan MD Discharge: Date of : 51 Report #: [id number] THIS REPORT FOR: //name// [facility] Test Date: 2019-07-05 Test Time: 20:11:29 Pat Name: ERICK ÁLVAREZ Department: Room: 247 P Gender: M Heavy Media Operator: isaiah : 1955 Requested By: Mariela Patel Order Number: [id number] MD: Sky William Measurements Intervals [place] Rate: 119 P: [place]: QRS: -95 QRSD: 155 T: 19 QT: 342 QTc: 482 Interpretive Statements Atrial fibrillation RBBB and LAFB Compared to ECG 06/26/2019 11:09:18 Sinus tachycardia no longer present Electronically Signed On 07-07-2019 9:10:42 CDT by Sky William [email or web address] <ELECTRONICALLY SIGNED> By: Sky William MD, [facility] 07/07/19 0910 10 10 Sky William MD, FAC /EPI
--- NOTE | 2019-07-07 12:09 | NUR ---
0855 PT HR ELEVATED-SEE VITAL SIGNS- ORDERS PER MALU ONEILL FOR CARDIZEM GTT AND BOLUS, 0912 GTT STARTED- HR IMPROVED 1040 HR 105. BP STABLE. 1125 DR VITALE ROUNDING-ORDERS TO STOP CARDIZEM GTT AND START AMIODARONE GTT PROTOCOL WITHOUT BOLUS.
[2019-07-07 14:15] LABS: POTASSIUM 3.4 mmol/L (3.5-5.1)
--- NOTE | 2019-07-07 15:00 | NUR ---
FOLLOWING [facility] DC PLANNING. CLINICAL INFO REVIEWED. PT TOLERATING ORAL DIET AND FLUIDS. CHEST TUBE HAS BEEN DC'D, WELL PRECEDEX GTT AND RESTRAINTS. PT IS ALERT AND ORIENTED X4. PT STATED HE DID NOT WANT ANYONE TO CALL HIS MOTHER OR SISTERS. THERAPY EVALS ORDERED.
--- NOTE | 2019-07-07 17:16 | EKG ---
[address] [place] [address] ELECTROCARDIOGRAM REPORT Name: ERICK ÁLVAREZ Room #: 247-P ADM IN M.R.#: [id number] Admission: 06/26/19 Attend Phys: Ricarda Phan MD Discharge: Date of : 51 Report #: [id number] THIS REPORT FOR: //name// [facility] Test Date: 2019-07-07 Test Time: 11:45:55 Pat Name: ERICK ÁLVAREZ Department: Room: 247 P Gender: M Fish And Wildlife Biologist: ZACHARY : 1955 Requested By: Taylor Rivera Order Number: [id number] MD: Sky William Measurements Intervals [place] Rate: 86 P: 28 NE: 189 QRS: -88 QRSD: 149 T: QT: 369 QTc: 442 Interpretive Statements Sinus rhythm RBBB and LAFB Abnormal T, consider ischemia, lateral leads Compared to ECG 07/05/2019 20:11:29 T-wave abnormality now present Atrial fibrillation no longer present Electronically Signed On 07-07-2019 17:16:21 CDT by Sky William [email or web address] <ELECTRONICALLY SIGNED> By: Sky William MD, [facility] 07/07/19 1716 1145 1145 Sky William MD, [facility] /EPI
--- NOTE | 2019-07-07 18:31 | NUR ---
PT UP TO CHAIR WITH PT, TOLERATED WELL, VITAL SIGNS STABLE HR UPPER 90'S, NO PAIN, ALERT AND ORIENTED X4, WANTS TO GO HOME, MISSES MOTHER.
[2019-07-08] VITALS (16 sets, daily range): BP systolic 106–128; BP diastolic 55–70
[2019-07-08 05:36] LABS: ABSOLUTE NEUTROPHILS 6.2 thou/uL (1.4-8.2); BASOPHILS 0.7 % (0.0-2.0); EOSINOPHILS 1.1 % (0.0-3.0); HEMOGLOBIN 11.9 gm/dL (14.0-18.0); LYMPHOCYTES 13.2 % (24.0-44.0); MCH 30.9 pg (26.0-34.0); MCV 93.6 fL (80.0-100.0); MONOCYTES 7.3 % (1.0-8.0); PLATELET COUNT 141 thou/uL (150-400); POLYS 77.7 % (36.0-66.0); RBC 3.84 mil/uL (4.50-6.00); RDW 14.5 % (10.5-14.5); WBC 7.9 thou/uL (4.0-11.0)
[2019-07-08 06:11] LABS: ALBUMIN 1.2 g/dL (3.4-5.0); CALCIUM 7.4 mg/dL (8.5-10.1); CREATININE 0.7 mg/dL (0.7-1.3); MAGNESIUM 1.7 mg/dL (1.8-2.4); PHOSPHORUS 1.8 mg/dL (2.5-4.9); POTASSIUM 3.2 mmol/L (3.5-5.1); TOTAL BILIRUBIN 1.2 mg/dL (<0.1-1.0); TOTAL PROTEIN 4.8 g/dL (6.4-8.2)
--- NOTE | 2019-07-08 10:00 | NUR ---
MONITOR SHOWING AFIB WITH RVR AFTER RESP TREATMENT ORDERS RECEIVED. PATIENT ALERT AND ORIENTATED. MAGNESIUM AND POTATASSIUM PHOS DRIPS INFUSING PER ORDER.
--- NOTE | 2019-07-08 14:15 | NUR ---
PATIENT MOVED OVER TO FLOOR BED AND TRANSFERED TO 212 VIA BED WITH O2. DIGOXIN GIVEN IVP. PATIENT INFORMED OF POC AND REASSURANCE GIVEN. VERBALIZED UNDERSTANDING.
--- NOTE | 2019-07-08 15:51 | NUR ---
met with patient who transferred from ICU to CCu. patient reports hopeful to dc to 5n then he reports he is considering staying with his mother. Patient resides in [facility] on land in [place]. Land owned by [employer]. Patient reports he plans to stay with Mother or he could consider [employer]. He reports once he stronger he plans to clean his trailor. He reports possible rec substance abuse tx on outpatient basis.
--- NOTE | 2019-07-08 16:00 | NUR ---
PATIENT REMAINS IN AFIB WITH RVR OF 140'S. DR MENDOSA INFORMED AND ORDERS RECEIVED. JAMISON DC'D AND PATIENT VOIDED 225 ML OF CLEAR GOOD URINE. OCC PRODUCTIVE COUGH OF THICK WHITISH SPUTUM. PATIENT INFORMED OF TRANSFER TO REASSURANCE GIVEN. PATIENT VERBLIZED UNDERSTANDING.
--- NOTE | 2019-07-08 20:12 | NUR ---
PT ARRIVED ON UNIT FROM ICU AT APPROX 1500. ASSESSMENT CHARTED. PT IN AFIB WITH RVR WITH HR 110-130. PT WORKED WITH PHYS THERAPY FOR SHORT TIME D/T HR IN 140S. PRN METOPROLOL ADMIN. NO C/O PAIN. PT VERY WEAK. USES URINAL AT BEDSIDE. PT ON 2L NC. WILL CONTINUE TO MONITOR AND FOLLOW POC.
[2019-07-09 04:55] VITALS: BP 122/61
[2019-07-09 07:51] VITALS: BP 105/61
--- NOTE | 2019-07-09 08:18 | NUR ---
ASSESSMENTS CHARTED, MEDS GIVEN CHARTED. PATIENT INCONTINENT OF BLADDER, PLACED EXTERNAL MALE CATHETER WITH GOOD SUCCESS. PATIENT SAT IN THE RECLINER MOST OF THE NIGHT AND WAS ABLE TO SLEEP. TRANSFERED WITH GAIT BELT, WALKER, AND 2 PEOPLE. AMIODARONE CONTINUED WITH LOWER DOSE THROUGH THE BALANCE OF THE SHIFT. FALL PRECAUTIONS IN PLACE. DENIED PAIN.
[2019-07-09 11:38] VITALS: BP 122/65
--- NOTE | 2019-07-09 13:27 | NUR ---
PATIENT SEEN BY DR. GONZALES THIS DATE. PATIENT HAS QUALIFYING DX FOR ACUTE REHAB AND IS A POSSIBLE CANDIDATE. AT THIS TIME BED AVAILABILITY IS QUESTIONABLE ON 5N. SPOKE WITH STERILE TECH REGARDING ABOVE. WILL CONTINUE TO FOLLOW AND WILL UPDATE STERILE TECH REGARDING BED AVAILABILTIY ABLE. THANK YOU FOR THIS REFERRAL.
--- NOTE | 2019-07-09 14:16 | NUR ---
discussed dc planning. Possibility no bed avail on 5N. Reviewed other rehab facilities. Patient interested in rehab in [place]. He requests cm call Tr[employer]. patient wants to know were [facility] rec rehab and if she feels a good rehab for him. Patients trailer is on [facility] property. [employer]iny #[phone]. Patient reports he sp with his mother, she just [facility]. Patient reports initial plan to stay with his mother. He reports when she was in rehab prior to his hospital stay he was driving to see her daily. he reports he feels better she is home. He reports his sister says he is not ready to stay with mother at this time. SP with Triny who reports her was at [facility]. He reports if he is at [place] she can see him more often. Triny has stated prev patient can stay with her. Questioned Triny if she believes its reasonable after rehab for patient to stay with mother and she believes it is reasonable. She requests to be notified when he transfers to rehab. Patient also reports he can stay with girlfriend Angelica. She has his dog that he misses. Referral to and rehab. Patient prefers 5N. Discussed with only medicare care plan acute rehab best option. He has only 20 days skilled then billed copay days at skilled.
--- NOTE | 2019-07-09 16:03 | NUR ---
FAXED REFERRAL TO [facility] SPOKE WITH JUAN PABLO IN ADM SHE RECEIVED REFERRAL AND WILL REVIEW. DP TO FOLLOW.
[2019-07-09 16:14] VITALS: BP 100/55
--- NOTE | 2019-07-09 18:11 | NUR ---
ASSUME CARE OF PT AT SHIFT CHANGE. ASSESSMENTS CHARTED. MEDS GIVEN PER MAR. VSS. A&OX4, BUT DIFFICULT TO UNDERSTAND D/T MISSING TEETH. WORKED WITH PT/OT, HR STAYED BELOW 100. ON 2L NC, SATING IN LOW 90S. PLAN TO CONSULT REHAB. WILL CONTINUE TO MONITOR AND FOLLOW POC.
[2019-07-09 21:11] VITALS: BP 125/64
[2019-07-10 00:45] VITALS: BP 137/58
[2019-07-10 04:08] VITALS: BP 130/58
--- NOTE | 2019-07-10 05:37 | NUR ---
pt assisted back to bed where he rested thru the noc, no c/o pain, remains on ra with sats mid 90's, vss, external catheter draining yellow urine, will con't to monitor per ppoc.
[2019-07-10 08:15] VITALS: BP 112/63
[2019-07-10 11:27] LABS: CALCIUM 7.7 mg/dL (8.5-10.1); CREATININE 0.8 mg/dL (0.7-1.3); MAGNESIUM 1.4 mg/dL (1.8-2.4); POTASSIUM 3.3 mmol/L (3.5-5.1)
--- NOTE | 2019-07-10 11:40 | NUR ---
ASSUMED CARE AT 0700, SHIFT ASSESMENT DONE, MEDS GIVEN, VSS. DENIES PAIN, NAUSEA, VOMITING. WORKED WITH PHYSCIAL THERAPHY, SITTING UP IN THE CHIAR. ON 2L NC, UP WITH 1 PERSON ASSIST. WILL CONTINUE TO ASSESS AND ASSIST WITH ADLs NEEDED.
[2019-07-10 12:15] VITALS: BP 114/51
--- NOTE | 2019-07-10 13:59 | NUR ---
The liason and the [facility] [place] operated by [facility] liason visited with the pt today. He prefers 5 if bed available when medically cleared. All parties hoping for tomorrow. [facility] indicates they would consider him for SNF if he needs to step down from acute rehab. may have a bed available tomorrow.
[2019-07-10 16:00] VITALS: BP 126/52
[2019-07-10 19:05] LABS: MAGNESIUM 1.5 mg/dL (1.8-2.4); POTASSIUM 3.6 mmol/L (3.5-5.1)
[2019-07-10 20:59] LABS: URINE BILIRUBIN NEGATIVE (Negative); URINE BLOOD NEGATIVE (Negative); URINE CLARITY CLEAR; URINE COLOR YELLOW; URINE GLUCOSE-RANDOM* NEGATIVE (Negative); URINE KETONES NEGATIVE (Negative); URINE LEUKOCYTES NEGATIVE (Negative); URINE NITRITE NEGATIVE (Negative); URINE PROTEIN (DIPSTICK) NEGATIVE (Negative); URINE SPECIFIC GRAVITY 1.015 (1.005-1.035)
[2019-07-10 21:05] VITALS: BP 115/58
--- NOTE | 2019-07-11 04:55 | NUR ---
ASSUMED PT CARE AT 1900. PT IS ALERT AND ORIENTED AND HE IS SITTING ON THE CHAIR. NO FAMILY AT BEDSIDE. NO COMPLAINT OF PAIN. ASSESSMENT COMPLETED AND DOCUMENTED. VITAL SIGNS STABLE. SCHEDULED MEDS ADMINISTERED TO PT. PT IS STABLE THROUGHOUT THE NIGHT. DENIES ANY FURTHER NEEDS AT THIS TIME.
[2019-07-11 05:01] VITALS: BP 124/62
[2019-07-11 07:09] VITALS: BP 130/73
[2019-07-11 11:04] LABS: MAGNESIUM 1.6 mg/dL (1.8-2.4); POTASSIUM 3.5 mmol/L (3.5-5.1)
[2019-07-11 11:54] VITALS: BP 119/60
[2019-07-11 15:30] VITALS: BP 116/60
[2019-07-11 15:36] LABS: MAGNESIUM 1.7 mg/dL (1.8-2.4); POTASSIUM 3.9 mmol/L (3.5-5.1)
[2019-07-11] MEDS ORDERED: PACERONE 200 M200 M1 PO ×2 (15:48→17:01)
--- NOTE | 2019-07-11 16:40 | NUR ---
Pt dcing to 5N this evening. He is aware and agreeable and indicates that he has talked with his sisters and friend Triny and they are aware. Triny to bring him in some clothing. Care team updated.
[2019-07-11] MEDS ORDERED: SENNA-TIME S T1 EACH PO (16:59)
[2019-07-11] MEDS ORDERED: DILTIAZEM 24HR120 M1 PO (16:59)
[2019-07-11] MEDS ORDERED: FLOMAX0.4 MG PO (16:59)
[2019-07-11] MEDS ORDERED: AUGMENTIN 875-1 EACH PO (16:59)
[2019-07-11] MEDS ORDERED: IPRAT-ALBUT 0.5-3 ML INH ×2 (16:59)
[2019-07-11] MEDS ORDERED: ENOXAPARIN30 MG/0.1 SUBQ (16:59)
[2019-07-11] MEDS ORDERED: RISPERIDONE 00.25 M1 PO (17:00)
[2019-07-11] MEDS ORDERED: PEPCID20 MG PO (17:03)
--- NOTE | 2019-07-15 10:15 | H ---
[facility] [place] [address] HISTORY AND PHYSICAL Name: ERICK ÁLVAREZ Room #: 212-P [facility] IN M.R.#: [id number] Admission: 06/26/19 Attend Phys: Ricarda Phan MD Discharge: 07/11/19 Date of : 51 Report #: [id number] THIS REPORT FOR: //name// CC: Sky William [facility] physician/PCP Mina Rhoades DATE OF SERVICE: 06/26/2019 PRIMARY CARE PHYSICIAN: Dr. Schwartz. However, he has not seen a provider for several years. CHIEF COMPLAINT: Shortness of breath and chest pain since yesterday. HISTORY OF PRESENT ILLNESS: The patient is a very emaciated, cachectic, malnourished appearing lean and thin gentleman with a history of hepatitis C untreated and also continued IV drug abuse, methamphetamine mainly and lack of medical care for the last several years. The patient has been living in a barn for past several years and has been just using IV methamphetamine and just basically staying by himself. The patient started having chest pain yesterday when it initially was a sharp pain with shortness of breath. The symptoms apparently started yesterday initially as a sharp chest pain, but then today, it was chest pressure associated with worsening of shortness of breath and diaphoresis and palpitations progressively getting worse. The patient had used IV methamphetamine 3 days ago and he tried to use it again today, but was not able to use it and he was having significant shortness of breath and so he asked his landlady to have him bring to the hospital and the patient apparently was driven to the hospital by the landlady and she left after the initial visit. The patient gave the history to the Emergency Room physician as well as the ER nurse. However, during the course of her ER stay, his shortness of breath progressively worsened and was hypoxic and therefore, the patient was intubated in the Emergency Room and currently he is intubated and sedated and still continues to have diaphoresis noted during exam. The patient is currently on the route to the Interventional Radiology to get a chest tube placed. The patient has already been evaluated by Dr. Higuera for his empyema. The patient when initially presented, according to the ER physician Dr. Akosua Eckert that he was full code and he gave all the history of chest pressure, palpitations, diaphoresis, fatigue and progressively worsening shortness of breath including hepatitis C and IV methamphetamine use and lack of medical care. The patient's none of the family members or friends are at the bedside and the history was mainly obtained from the ER provider as well as the ER nurse who has been taking care of the patient. The patient has not had any syncopal episodes or fall. According to the RN taking care of the patient, she did check with the patient before he got intubated. [address] [address] HISTORY AND PHYSICAL Name: ERICK ÁLVAREZ Room #: 212-P DIS IN M.R.#: [id number] Admission: 06/26/19 Attend Phys: Riacrda Phan MD Discharge: 07/11/19 Date of : 51 Report #: [id number] PAST MEDICAL HISTORY: Significant for: 1. Untreated hepatitis C. 2. Persistent IV drug abuse. 3. Tobacco dependence. CURRENT MEDICATIONS: The patient was not taking any medications at home. ALLERGIES: THE PATIENT HAS TACHYCARDIA WITH BENADRYL AND THAT IS THE ONLY ALLERGY LISTED. SOCIAL HISTORY: The patient smokes 1 pack per day with IV methamphetamine drug use and denied any other drug use and the patient denied any alcohol intake. REVIEW OF SYSTEMS: Could not be obtained as the patient was intubated and sedated and as per the ER provider as well as RN taking care of the patient other than shortness of breath, cough and chest pain and diaphoresis and fatigue, the patient has not complained of anything else. According to the friend who brought the patient here, there was no evidence of any GI bleed or any nausea, vomiting or diarrhea. FAMILY HISTORY: Not obtainable. I made an attempt to call his mother who is listed in the computer as the next of kin; however, no one picked up the phone. We will attempt to call again. PHYSICAL EXAMINATION: GENERAL: At the time of examination, the patient had heart rate of 141, respirations 20. Blood pressure 158/85, pulse oximetry 98% on ventilator with FiO2 of 60%, tidal volume 500 and PEEP of 8 and a respiratory rate of 20 and appears very cachectic and malnourished with significant loss of subcutaneous tissue and muscle mass. HEENT: The patient is normocephalic, atraumatic. Pupils are pinpoint bilaterally symmetrical. Conjunctivae clear. Sclerae icteric. Oropharynx clear. No thrush noted. Endotracheal tube is in place along with OG tube. NECK: No lymphadenopathy noted or JVD noted. HEART: S1, S2, tachycardia noted. No murmurs noted. LUNGS: The patient has decreased breath sounds on the right side of the left and left lung with coarse breath sounds noted. ABDOMEN: Soft, scaphoid, normal active bowel sounds present, no organomegaly noted. EXTREMITIES: No edema to both lower extremities. SKIN: Dry. NEUROLOGIC: As per the ER provider, neurological exam was nonfocal. The patient currently is on a propofol drip. SKIN: Without any skin breakdown. [facility] [address] [address] HISTORY AND PHYSICAL Name: ERICK ÁLVAREZ Room #: 212-P [facility] IN M.R.#: [id number] Admission: 06/26/19 Attend Phys: Ricarda Phan MD Discharge: 07/11/19 Date of : 51 Report #: [id number] LABORATORY DATA: The patient has a pH of 7.242 with pCO2 of 58, pO2 of 91.9 and lactic acid 1.68 on PEEP of 8, tidal volume of 500 and FiO2 of 60%. Lactic acid when he presented was 3.1 and had come down to 1.68. Urine drug screen is positive for methamphetamine and negative for opiates, methadone, barbiturates, PCP, cocaine, and marijuana and benzodiazepine. Chemistries indicate sodium 136, potassium 3.5, chloride 96, bicarbonate 29, anion gap 11, BUN 22, creatinine 1.1, estimated GFR 67, glucose 117, calcium 8.8, magnesium 1.8, total bilirubin 2.4, direct bilirubin 2.1, AST 71, ALT 49, alkaline phosphatase 218. Troponin I less than 0.06. BNP 1096. Total protein 6.7, albumin critically very low at 1.8. PT/INR with PT mildly prolonged 12.8, INR 1.2, PTT 29.3. Hematology indicates WBC 24,000 with 70% segmented neutrophils and 17% band neutrophils, hemoglobin 15.6, hematocrit 46.7 and platelet count 251. Toxicology with serum alcohol level less than 10. Blood cultures were sent from the ER and urine culture has been ordered. UA is pending at the time of dictation. ASSESSMENT AND PLAN: 1. Acute respiratory failure secondary to empyema and complex right-sided effusion, large loculated effusion with pneumonia. 2. History of hepatitis C and intravenous drug abuse. 3. SVT secondary to the underlying respiratory failure. 4. Chronic obstructive pulmonary disease with nicotine dependence. 5. Systemic inflammatory response syndrome/sepsis meet the criteria for sepsis with tachycardia, empyema and hypoxemia and lactic acidosis. 6. Lack of primary care. 7. Full code. PLAN: 1. The patient is being admitted to ICU. Broad spectrum antibiotics have been started. I have consulted Pulmonary for acute respiratory failure. Appreciate Dr. Higuera already seeing the patient in the ER for large right-sided loculated complex effusion with empyema. The patient is on broad-spectrum antibiotics with Zosyn and vancomycin. We will continue the same. Appreciate pharmacy consult for vancomycin monitoring and Infectious Disease consult has been placed and I have ordered hepatitis C as well as HIV screen. 2. For tachycardia, the patient has received adenosine that converted him from SVT to now sinus tachycardia and once the underlying issue is addressed, then it should improve. I would go ahead and add TSH to the blood work already done as the patient has had no medical care for the last several years and we will also go ahead and check for hemoglobin A1c for diabetes screening. 3. We will continue sedation with propofol for now. 4. Once the patient has chest tube placed, his cardiopulmonary status should improve, tachycardia should resolve and hypoxemia should improve as well. The patient has significant bandemia and blood cultures have been sent and urine strep pneumo antigen, legionella antigen as well as histoplasma antigen has been ordered and hopefully will be added to the urine sample sent from the ER. [facility] [address] [place] [address] HISTORY AND PHYSICAL Name: ERICK ÁLVAREZ Room #: 212-P DIS IN M.R.#: [id number] Admission: 06/26/19 Attend Phys: Ricarda Phan MD Discharge: 07/11/19 Date of : 51 Report #: [id number] 5. The patient is full code. 6. We will go ahead and place a Waters catheter for accurate intake and output and for GI prophylaxis we will use Pepcid and for DVT prophylaxis, we will use pneumatic compression devices for now and ammonia level has been ordered because of underlying liver disease and mildly abnormal protime with severely low albumin level indicating dysfunction in the synthetic function of liver. We will go ahead and check AFP once the patient is more stable as with hepatitis C it is recommended and hepatitis B screen also has been ordered and plan of care was discussed with the ER provider Dr. Akosua Eckert and try to contact mother, next of kin, however, was unable to reach her. We will let nursing staff know if any of the family members come, then we will be available to review clinical status of the patient. The patient is critically ill and will be admitted to ICU and has multiple comorbidities with poor prognostic factors at the time of admission. <ELECTRONICALLY SIGNED> By: Ricarda Phan MD 07/15/19 1015 [id number] Ricarda Phan MD /nt
--- NOTE | 2019-07-18 12:58 | HC ---
[facility] [place] [address] CONSULTATION Name: ERICK ÁLVAREZ Room #: 212-P [facility] IN M.R.#: [id number] Admission: 06/26/19 Attend Phys: Ricarda Phan MD Discharge: 07/11/19 Date of : 51 Report #: [id number] THIS REPORT FOR: //name// CC: Sky William [facility] physician/PCP Mina Rhoades DATE OF SERVICE: 07/09/2019 HISTORY OF PRESENT ILLNESS: The patient is a 63-year-old white male, cachectic, hepatitis C, untreated, ongoing IV methamphetamine abuse, admitted with increased shortness of breath, acute respiratory failure secondary to empyema. He had a chest tube placed right lung. She was diagnosed with empyema and pneumonia. Chest tube was discontinued 07/05/2019. Continues on IV antibiotics as per Infectious Disease. He was extubated on 07/05/2019. He has had multiple metabolic abnormalities which are being stabilized. He was diagnosed with atrial fibrillation, controlled now on amiodarone. Significant malnutrition with dietary involved. He was seen by Psychiatry, noted to have improving. Mental status is felt to be competent. He was treated for sepsis. He has significant weakness and likely may have a critical illness myopathy, superimposed on his other multiple medical comorbidities. We are seeing him in rehabilitation medicine consultation. PAST MEDICAL HISTORY: Prior medical history was significant for hepatitis C, persistent IV drug abuse and tobacco abuse. MEDICATIONS: Please see the full medication listing. ALLERGIES: Tachycardia with Benadryl. SOCIAL HISTORY: Had been living in a mobile home alone, but does not have running water. He did not use an assistive device. Plan is to go to his mother's house, 3 steps in. There is an stair glide. HABITS: Smokes 1 pack per day and ongoing IV methamphetamine drug usage. He does plan on undergoing outpatient drug treatment once he is further medically stabilized. REVIEW OF SYSTEMS: No current complaints of chest pain, shortness of breath, abdominal discomfort. Complains of overall generalized weakness. PHYSICAL EXAMINATION: GENERAL: A 63-year-old cachectic white male in no obvious distress. VITAL SIGNS: Last recorded temperature 98.8, pulse 94, respirations 20, blood [address] [address] CONSULTATION Name: ERICK ÁLVAREZ Room #: [facility] IN .R.#: [id number] Admission: 06/26/19 Attend Phys: Ricarda Phan MD Discharge: 07/11/19 Date of : 51 Report #: [id number] pressure 122/65. NEUROLOGIC: The patient is alert. HEENT: Appears poor dentition. He will follow basic 1 step commands. There is some latency to his responses. Facies are symmetric. He was able to give me some basic history. EXTREMITIES: He does have functional range of motion of both upper extremities. Strength is grade 3+/5. DTRs are trace to 1. Lower extremities, no focal calf swelling. He does have 1+ distal lower extremity edema. Strength is probably a grade 3+/5. He was mod assist with sit to stand. Gait was 70 feet mod assist with a front-wheeled walker. He is max assist to down his socks. ASSESSMENT: A 63-year-old white male with the following problem list: 1. Toxic metabolic encephalopathy, improving. He was in restraints up until 07/07/2019, but again appears improving. 2. 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 3. Acute respiratory failure with empyema intubation, prolonged ventilation. Chest tube was since been replaced. 4. Sepsis. 5. Supraventricular tachycardia. 6. Cachexia with poor nutritional status. 7. History of IV drug abuse with methamphetamine. 8. Tobacco abuse. PLAN: To live with his mother and obtain outpatient drug abuse treatment, which he is amenable to plan. The patient is a candidate for an acute [address] [place] [address] inpatient rehabilitation stay. We are currently tight on bed availability, but will be glad to follow along with you regarding his rehab therapy needs. <ELECTRONICALLY SIGNED> By: Otilio Woodson MD 07/18/19 1258 1252 1428 Otilio Woodson MD /[facility]
== END 2019-07-11 18:49 | DRG 870 ==
LOC: ER 10:48 → ICU 14:13 → EROBS 14:13 → ICU 15:45 → 2N 07-08 14:40
PROVIDERS: Emergency Medicine; Internal Medicine; Internal Medicine Pulmonary Disease; Nurse Practitioner Acute Care; Pediatrics; Specialist; Surgery Vascular Surgery; ADMIT Internal Medicine
PROC: 02HV33Z Insertion of Infusion Device into Superior Vena Cava, Percutaneous Approach (ICD-10-PCS; principal; 2019-06-26)
PROC: 5A1955Z Respiratory Ventilation, Greater than 96 Consecutive Hours (ICD-10-PCS; principal; 2019-06-26)
PROC: 5A2204Z Restoration of Cardiac Rhythm, Single (ICD-10-PCS; principal; 2019-06-26)
PROC: 0W9930Z Drainage of Right Pleural Cavity with Drainage Device, Percutaneous Approach (ICD-10-PCS; principal; 2019-06-26)
PROC: 0BH17EZ Insertion of Endotracheal Airway into Trachea, Via Natural or Artificial Opening (ICD-10-PCS; principal; 2019-06-26)
DX: A41.9 Sepsis, unspecified organism (principal); J96.01 Acute respiratory failure with hypoxia; J18.9 Pneumonia, unspecified organism; J86.9 Pyothorax without fistula; G92 Toxic encephalopathy; J96.02 Acute respiratory failure with hypercapnia; E43 Unspecified severe protein-calorie malnutrition; I47.1 Supraventricular tachycardia; F15.20 Other stimulant dependence, uncomplicated; I48.21 Permanent atrial fibrillation; G72.81 Critical illness myopathy; B19.20 Unspecified viral hepatitis C without hepatic coma; K02.9 Dental caries, unspecified; R65.20 Severe sepsis without septic shock; E83.42 Hypomagnesemia; Z60.2 Problems related to living alone; R41.0 Disorientation, unspecified; E87.6 Hypokalemia; E83.39 Other disorders of phosphorus metabolism; Z71.51 Drug abuse counseling and surveillance of drug abuser; Z88.8 Allergy status to other drugs, medicaments and biological substances; Z68.20 Body mass index [BMI] 20.0-20.9, adult; Z79.899 Other long term (current) drug therapy
CPT/HCPCS: 10078; 10081; 10203; 27000

== ENCOUNTER 2019-07-11 12:50 | Inpatient (IN) | payer OTHER ==
[~2019-07-11] VITALS: Ht 188 cm; Wt 70.3 kg
[2019-07-11] MEDS ORDERED: PACERONE 200 M200 M1 PO ×2 (15:48→17:01)
[2019-07-11] MEDS ORDERED: FLOMAX0.4 MG PO (16:59)
[2019-07-11] MEDS ORDERED: ENOXAPARIN30 MG/0.1 SUBQ (16:59)
[2019-07-11] MEDS ORDERED: DILTIAZEM 24HR120 M1 PO (16:59)
[2019-07-11] MEDS ORDERED: AUGMENTIN 875-1 EACH PO (16:59)
[2019-07-11] MEDS ORDERED: IPRAT-ALBUT 0.5-3 ML INH ×2 (16:59)
[2019-07-11] MEDS ORDERED: SENNA-TIME S T1 EACH PO (16:59)
[2019-07-11] MEDS ORDERED: RISPERIDONE 00.25 M1 PO (17:00)
[2019-07-11] MEDS ORDERED: PEPCID20 MG PO (17:03)
[2019-07-11 20:16] VITALS: BP 133/68
--- NOTE | 2019-07-12 01:48 | NUR ---
PTS FAMILY BROUGHT IN FOLLOWING ITEMS FOR PT LAST NIGHT- LAPTOP COMPUTER, FERTILIZER LOADER, ELECTRIC RAZOR, JACKET AND CLOTHES.
--- NOTE | 2019-07-12 04:04 | NUR ---
[facility] JHON Kimble with pt and oriented to room at change of shift. pt alert and oriented x4, appropriate and cooperative. pt took hs meds with water tolerating well. pt voiding per urinal. pt appears to be sleeping soundly off and on. bed alarm on and call light in reach. will continue to monitor.
[2019-07-12 05:07] LABS: HEMATOCRIT 33.6 % (42.0-52.0); HEMOGLOBIN 11.3 gm/dL (14.0-18.0); MCH 31.4 pg (26.0-34.0); MCHC 33.5 g/dL (28.0-37.0); MCV 93.8 fL (80.0-100.0); RBC 3.59 mil/uL (4.50-6.00); RDW 14.4 % (10.5-14.5); WBC 6.4 thou/uL (4.0-11.0)
[2019-07-12 05:10] LABS: CALCIUM 8.2 mg/dL (8.5-10.1); CREATININE 0.6 mg/dL (0.7-1.3); POTASSIUM 3.6 mmol/L (3.5-5.1)
[2019-07-12 10:22] LABS: FOLIC ACID 12.6 ng/mL (8.6-58.9)
[2019-07-12 10:43] VITALS: BP 134/74
--- NOTE | 2019-07-12 16:42 | NUR ---
AAOX4 PLEASANT AND COOPERATIVE. DENIES PAIN. ATE MEALS IN DINNING ROOM WITH GOOD APPETITE. WORKS WELL WITH THERAPIES. AMBULATES WITH SLOW STEADY GAIT. VOIDS PER URINAL.
[2019-07-12 20:05] VITALS: BP 133/72
--- NOTE | 2019-07-13 03:00 | NUR ---
assumed care at approx 1900 evening 07/12. pt sitting up in bed at change of shift resting and watching tv. pt alert and oriented x4, appropriate and cooperative. pt took hs meds with water tolerating well. pt voiding per urinal. pt up to bathroom with walker to have small bm. pt c/o having small hard stool. order recd for suppository and miralax. pt now back to sleep. bed alarm on and call light in reach. will continue to monitor.
[2019-07-13 08:20] VITALS: BP 113/68
--- NOTE | 2019-07-13 12:34 | NUR ---
PT IS IN DINING ROOM EATING LUNCH. PLEASANT AND COOPERATIVE WITH CARE. TAKES MEDS W/O DIFF. WILL GIVE FLU VACCINE WHEN COMES UP FROM PHARMACY.
--- NOTE | 2019-07-13 15:48 | NUR ---
PICC LINE TO RIGHT UPPER ARM DCD. NO PAIN OR DISCOMFORT TO PATIENT. 42CM IN LENGTH.
--- NOTE | 2019-07-13 17:58 | NUR ---
PATIENT GIVEN INFLUENZA VACCINE IN LEFT DELTOID AT THIS TIME [facility] [place] LOT # [id number], EXP 03/16/20.
[2019-07-13 20:30] VITALS: BP 126/72
[2019-07-13 20:35] VITALS: BP 126/72
--- NOTE | 2019-07-14 02:31 | NUR ---
PATIENT ASSESSED AND IS ALERT X 4. SKIN WARM AND DRY . RESP EVEN AND UNLABORED. REMAINS A FULL CODE. HAS SOME DRUG AND METH USEAGE PRIOR IN COMING INTO HOSPITAL. CAME IN WITH TOXIC METABOLIC ENCEPHALOPATHY. REMAINS A FALL RISK. UP WITH STAND-BY ASSIST TO BATHROOM AND W/C WITH GAIT BELT AND WALKER.. DENIES ANY PAIN. NO SKIN ISSUES. TURNS SELF IF REMINDED. HAS BEEN AWAKE ALOT LAST NIGHT. WATCHING TV. NO OTHER SKIN ISSUES. HAD HIS FLU VACCINE. RACHAEL WELL. DENIES ANY NEEDS. VOIDS ANY OTHER TIME IN URINAL.REMAINS ON NO 02. CONT PLAN OF CARE.
[2019-07-14 08:00] VITALS: BP 122/73
[2019-07-14 12:03] LABS: CALCIUM 8.4 mg/dL (8.5-10.1); CREATININE 0.8 mg/dL (0.7-1.3); MAGNESIUM 1.6 mg/dL (1.8-2.4); POTASSIUM 3.5 mmol/L (3.5-5.1)
--- NOTE | 2019-07-14 12:18 | NUR ---
chart review, pt up in bed. pat is a & o x 3, and able to make his needs know. intro to cm, dcp, transition of care and team meeting " ok going to get dr in [place] when i get out of here and then if ever need anything can have it done closer to home. lived alone in trailer home on my [address]. 2 steps with handrail to enter, if lowered it to ground would only have 1 step. no stairs inside. independent prior to hospital. manage own medication, pay bills, and drive vehicle. don't think going to stay with my mom after this either because she going to therapy herself now and has in home care givers. i would have to be tip top to stay with her. going to stay with my friend ryan or my girl friend."/pat. will cont following as needed for dc needs.
[2019-07-14 13:30] VITALS: BP 128/66
[2019-07-14 13:31] VITALS: BP 81/51
--- NOTE | 2019-07-14 15:18 | NUR ---
ASSUMED CARE OF PT AT 0715. PT IS A&OX4 AND VITAL SIGNS STABLE. PT DENIES PAIN AND PARTICIPATED IN THERAPIES. PICC LINE D/C OVER WEEKEND AND SITE IS [facility]. DURING PT THIS AFTERNOON PT EXPERIENCED ORTHOSTATIC HYPOTENSION. SITTING BP 128/66 HR 101, STANDING BP 81/51 HR 75. PT ALSO EXPERIENCED SOB, DIZZINESS, AND WEAKNESS. ON ASSESSMENT PT HAS +2 PITTING BLE EDEMA. ORDERS FOR MONICA AMAIRANIE AND CONSULT CARDIO. CONTACTED DR. BUSCH'S OFFICE, PROVIDER TO VISIT PT ON UNIT. FALL PRECAUTIONS IN PLACE AND NURSING WILL CONTINUE TO MONITOR.
[2019-07-14 19:43] VITALS: BP 128/67
--- NOTE | 2019-07-15 00:45 | NUR ---
PT ASSESSMENT COMPLETED AND VSS. MEDS GIVEN ORDERED AND WELL TOLERATED. FALL PRECAUTIONS IN PLACE. VOIDING LARGE AMOUNT PER URINAL. UP WATCHING TV LATE. PT DID NOT WANT HIS TV TURNED OFF. SLEEPING ON AND OFF. DENIES NEEDS. WILL CONTINUE TO MONITOR FREQUENTLY.
--- NOTE | 2019-07-15 07:32 | HC ---
[facility] [place] [address] CONSULTATION Name: ERICK ÁLVAREZ Room #: 514-P ADM IN M.R.#: [id number] Admission: 07/11/19 Attend Phys: Otilio Woodson MD Discharge: Date of : 51 Report #: [id number] THIS REPORT FOR: //name// CC: Otilio Woodson FAM physician/PCP DATE OF SERVICE: 07/13/2019 NEUROBEHAVIORAL STATUS EXAM AGE: 63 ATTENDING PHYSICIAN: Otilio Woodson MD GLOBAL MARKETING OPERATIONS MANAGER: Josiah Morales, PhD CLINICAL PRESENTATION: The patient is a 63-year-old male admitted to [facility] for a comprehensive inpatient rehabilitation program to improve functional mobility, activities of daily living and self-care and mental status secondary to deficits from a toxic metabolic encephalopathy. His assessment on admission to the rehabilitation unit includes acute respiratory failure, status post extubation, status post chest tube, sepsis, supraventricular tachycardia resolved with amiodarone, cachexia, IV drug abuse and tobacco abuse. A complete description of his medical condition and history can be found in his medical record. Neuropsychological consultation was requested to provide assistance in the assessment of cognitive and emotional status and to provide recommendations and services. Prior to this most recent admission, he reports living independently in his own home, driving and independent with instrumental activities of daily living. The patient is , without children. He has 2 sisters. 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 His last grade completed is high school graduate. He reports a history of alcohol and methamphetamine abuse which he discontinued several years ago. However, it should be noted that medical records indicate recent IV drug use which is described as persistent. TECHNIQUES UTILIZED: Clinical interview, review of medical records, staff consultation and behavioral observation, mini mental status exam 2 standard version, clock drawing and verbal fluency assessment. le EXAMINATION FINDINGS: The patient was alert and cooperative with the assessment. He was vague in regard to the reason for his hospitalization. He reports his symptoms to include memory, word finding and anxiety and denies difficulty with sleep, appetite or depression. He describes his only symptom is related to his voice. Patient indicated that he is still working and hoping to return home as soon as possible. As indicated earlier, he reports having discontinued meth and [facility] [address] [place] [address] CONSULTATION Name: ERICK ÁLVAREZ Room #: 514-P [facility] IN M.R.#: [id number] Admission: 07/11/19 Attend Phys: Otilio Woodson MD Discharge: Date of : 51 Report #: [id number] alcohol abuse about 8-9 years ago while medical records indicate continued abuse. Performance on the MMSE 2 brief version is in the mild range of impairment with a raw score of 13/16. He has 3/3 for initial registration, 4/5 for orientation to time and 5/[address]. He is 1/3 for immediate recall of 3 items after a brief time delay and distraction. His performance on the MMSE 2 standard version is within normal limits with a raw score of 27/30. He was 5/5 for serial sevens, 2/2 for naming, 1/1 for repetition, 3/3 for auditory comprehension. He could read and follow single command and write a sentence. He could also copy a simple geometric design. Clock drawings within normal limits. However, it should be noted that an upper extremity tremor was present throughout visual spatial constructive tasks. Letter fluency was in the borderline range with a T score of 34 and percentile rank of 5. Category fluency was borderline with a T score at 34 and percentile rank of 5. Overall, total fluency is in the lower end of the borderline range with a T score of 30 and percentile rank at 2 The patient is presenting with variability in immediate recall, and executive functioning. Substance abuse is also noted upon which the patient is either forgetting or not forthright in his description of recent habits. DIAGNOSTIC IMPRESSION: Mild neurocognitive disorder, unspecified, without behavior disorder. Methamphetamine abuse. Unspecified anxiety disorder. RECOMMENDATIONS: The patient will require assistance in the management of medication and finances in order to maintain safety. A continued substance abuse treatment program will be necessary following his discharge. Assistance with planning and problem solving will be of benefit. Behind the wheel driving evaluation is also recommended to ensure safety. Thank you very much for allowing me to provide the consultation on this patient. <ELECTRONICALLY SIGNED> By: Josiah Morales, PhD 07/15/19 0732 1647 0230 Josiah Morales, PhD /nt
[2019-07-15 08:00] VITALS: BP 116/72
--- NOTE | 2019-07-15 09:47 | NUR ---
P.T. DAILY CARE TOOL DOCUMENTED AT 0944 IS A RECREATED DOCUMENT WITH INFORMATION GATHERED FROM NURSING, PT, AND OT DAILY CARE TOOLS. RECREATION OF DOCUMENT REQUIRED TO ALLOW FOR ACCURATE LEVELS OF ASSIST ON TEAM CONFERENC REPORTS.
--- NOTE | 2019-07-15 13:08 | NUR ---
team meeting, recommendation: re team with dc 07/24, damien (pt, ot, st, nursing)
--- NOTE | 2019-07-15 16:33 | NUR ---
ASSUMED CARE OF PT AT 0715. PT IS A&OX4 AND VITAL SIGNS ARE STABLE. CONTINUE CALORIE COUNT PER DIETARY. REPORTED INSOMNIA OVER LEGAL COORDINATOR AND SLEEP AID ORDERED BY SKATESMAN. NO EPISODES OF ORTHOSTATIC HYPOTENSION THIS SHIFT. CONTINUE TO MONITOR ELECTROLYTES AND CARDIAC FUNCTION. PT RESTLESS IN BED, BUT CALLS APPROPRIATELY FOR TRANSFERS AND AMBULATION. REPORTS THAT HE FEELS LONELY AND WANTS TO DISCHARGE SOON. FALL PRECAUTIONS IN PLACE AND NURSING WILL CONTINUE TO MONITOR.
[2019-07-15 19:08] VITALS: BP 124/56
--- NOTE | 2019-07-15 23:39 | NUR ---
PT ASSESSMENT COMPLETED AND VSS. MEDS GIVEN ORDERED AND WELL TOLERATED. FALL PRECAUTIONS IN PLACE. UP TO THE BATHROOM WITH ASST/GAIT/WALKER. STEADY. VOIDING LARGE AMOUNT OF URINE PER URINAL. SLEEPING WELL. WILL CONTINUE TO MONITOR FREQUENTLY.
[2019-07-16 06:03] LABS: CALCIUM 8.1 mg/dL (8.5-10.1); CREATININE 0.8 mg/dL (0.7-1.3); POTASSIUM 3.6 mmol/L (3.5-5.1)
--- NOTE | 2019-07-16 12:00 | NUR ---
cm notified possible dc move up to the 4th. dr rudolph has agreed to cover for hh needs at dcp. pt wants to stay with [facility] and wants to find pcp with [facility]. will cont following as needed for dc needs.
--- NOTE | 2019-07-16 14:34 | NUR ---
DISCHARGE PLANNING. ANTICIPATED DISCHARGE DATE PLANNED FOR 07/21 PER UNIT CM. HOME HEALTH REACOMMENDED AT DISCHARGE. PATIENT REFERRAL FAXED TO [facility] PER PATIENT REQUEST. CALL RECEIVED FROM [facility]TA[facility]. MARGARITA STATES THEY ARE UNABLE TO ACCEPT PATIENT AT THIS TIME. [facility] IS AT [facility]. FOLLOWING.
--- NOTE | 2019-07-16 15:34 | NUR ---
cm visited with pt on how [facility] is full and unable to accept for hh needs. " just use anyone that comes out to [facility] that doesnt have to drive hours to get to my place"/pat. will cont following as needed for dc needs.
[2019-07-16 18:38] LABS: MAGNESIUM 1.8 mg/dL (1.8-2.4)
[2019-07-16 19:55] VITALS: BP 121/75
--- NOTE | 2019-07-17 01:29 | NUR ---
ASSESSMENT: PT REMAIN ALERT AND ORIENT TIMES FOUR. UP IN WC IN CORRIDOR. SLEPT THE EARLIER PART OF THE SHIFT THEN AROUND 0100 WAS SEEKING COFFEE. VSS, AFEBRILE. PT IS A POSSIBLE DC FOR THIS SUNDAY, BUT PT WAS TO STAY UNTIL SUNDAY BEFORE BEING DC'S. SLOW PROGRESS TOWARDS DC GOALS.
[2019-07-17 07:54] VITALS: BP 102/56
--- NOTE | 2019-07-17 10:15 | NUR ---
spoke with pt and any hh is ok. referral to be sent to [facility].
--- NOTE | 2019-07-17 15:38 | NUR ---
FAXED REFERRAL TO [facility] SPOKE WITH GASTON IN INTAKE SHE RECEIVED REFERRAL AND CAN ACCEPT PT AT DC. ANTICIPATE DC 07/24.
[2019-07-17 16:08] LABS: ALBUMIN 1.9 g/dL (3.4-5.0); CALCIUM 8.6 mg/dL (8.5-10.1); CREATININE 0.8 mg/dL (0.7-1.3); TOTAL BILIRUBIN 0.5 mg/dL (<0.1-1.0); TOTAL PROTEIN 6.3 g/dL (6.4-8.2)
--- NOTE | 2019-07-17 17:44 | EKG ---
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: ZACHARY : 1955 Requested By: Taylor Rivera Order Number: [id number] MD: Sky William Measurements Intervals [place] Rate: 75 P: 216 OH: 217 QRS: -84 QRSD: 161 T: 88 QT: 409 QTc: 457 Interpretive Statements Sinus or ectopic atrial rhythm Borderline prolonged OH interval Right bundle branch block T-wave abnormality, consider lateral ischemia Compared to ECG 07/07/2019 11:45:55 no significant change was found Electronically Signed On 07-17-2019 17:43:45 CDT by Sky William [email or web address] <ELECTRONICALLY SIGNED> By: Sky William MD, FAC 07/17/19 1743 1004 1004 Sky William MD, [facility] /EPI
[2019-07-17 20:13] VITALS: BP 121/67
--- NOTE | 2019-07-17 21:00 | NUR ---
ASKING FOR MEDS INCLUDING STOOL SOFTENER. APPRECIATES INFO ON MEDS, IS WORRIED HE WILL FORGET MOST INFORMATION ABOUT HIS CURRENT MEDS. APPRECIATES MELATONIN SINCE HE HAD A GOOD NIGHT SLEEP LAST NIGHT AND WOULD LIKE TO REPEAT IT. ADMITS TO MILD BUT MANAGEABLE ANXIETY. WATCHING HALLOWEEN MOVIES ON TV, HAS DOZED OFF FOR BRIEF PERIOD.
[2019-07-18 05:49] LABS: ABSOLUTE NEUTROPHILS 2.9 thou/uL (1.4-8.2); BASOPHILS 1.4 % (0.0-2.0); EOSINOPHILS 2.4 % (0.0-3.0); HEMATOCRIT 32.4 % (42.0-52.0); HEMOGLOBIN 10.8 gm/dL (14.0-18.0); LYMPHOCYTES 29.1 % (24.0-44.0); MCH 31.4 pg (26.0-34.0); MCHC 33.3 g/dL (28.0-37.0); MCV 94.5 fL (80.0-100.0); MONOCYTES 10.7 % (1.0-8.0); PLATELET COUNT 217 thou/uL (150-400); POLYS 56.4 % (36.0-66.0); RBC 3.43 mil/uL (4.50-6.00); RDW 15.3 % (10.5-14.5); WBC 5.2 thou/uL (4.0-11.0)
[2019-07-18 08:15] VITALS: BP 118/72
[2019-07-18 13:07] LABS: ALBUMIN 1.8 g/dL (3.4-5.0); DIRECT BILIRUBIN 0.4 mg/dL (<0.1-0.3); TOTAL BILIRUBIN 0.5 mg/dL (<0.1-1.0)
--- NOTE | 2019-07-18 16:12 | NUR ---
ASSUMED CARES AT 0700. PT AWAKE, ALERT AND ORIENTED*4. DENIES PAIN. VITALS REMAIN STABLE. AMIODARONE DOSAGE CHANGED R/T LIVER FUNCTION TESTS. PT UP WITH 1 MIN- CONTACT GUARD TRANSFERS TO CHAIR AND TOLERATED WELL. Q1H VISUAL CHECKS. CALL LIGHT WITHIN REACH. FALL PRECAUTIONS IN PLACE
[2019-07-18 19:30] VITALS: BP 121/59
--- NOTE | 2019-07-19 05:12 | NUR ---
PLEASANT AND AWARE OF NPO STATUS UNTIL FINISHED WITH US ABDOMEN THIS MORNING. APPRECIATED ICE CREAM AND JOHN CRACKERS AT 2300 LAST EVENING. AGAIN HOPING THAT HE CAN QUALIFY FOR MODIFIED INDEPENDENT TODAY
[2019-07-19 10:39] VITALS: BP 124/62
--- NOTE | 2019-07-19 12:55 | NUR ---
ASSUMED CARE AT 0700. PATIENT IS ALERT AND ORIENTED X4. PATIENT AMBROSE'S. PIN DRAFTER OPERATOR ARE EQUAL. LUNGS ARE CLEAR AND DEMINISHED ON THE RIGHT. PATIENT CONTINUES ON ABT WITHOUT ADVERSE AFFECTS. PATIENT WAS NPO FOR SONOGRAM OF HIS ABD, THEN HIS DIET WAS RESUMED. FALL AND SAFETY PROTOCOLS IN PLACE. DENIES ANY PAIN AT THIS TIME. CONTINUES TO PROGRESS TOWARDS D/C GOALS. WILL CONTINUE TO MONITER.
[2019-07-19 20:52] VITALS: BP 108/57
--- NOTE | 2019-07-19 22:51 | NUR ---
PT ASSESSMENT DONE AND VSS. MED GIVEN AND WELL TOLERATED. FALL PRECAUTIONS IN PLACE. PT MOD I IN HIS ROOM. UNDERSTANDS THAT HE STILL NEEDS TO USE HIS WHEELCHAIR WHEN COMING OUT OF HIS ROOM. SLEEPING WELL. HOURLY ROUNDING. CALL LIGHT IN REACH. WILL CONTINUE TO MONITOR.
[2019-07-20 02:00] LABS: HIV ANTIBODY Non Reactive (Non Reactive)
[2019-07-20 07:45] VITALS: BP 120/67
--- NOTE | 2019-07-20 13:24 | NUR ---
ASSUMED CARE OF PT AT 0715. PT IS A&OX4. IS ON ROOM AIR. DENIES PAIN. IS STABLE. IS UP MOD I IN ROOM. OUT TO THE DINNING ROOM FOR ALL MEALS. FALL PRECAUTIONS & HOURLY ROUNDING CONTINUED THIS SHIFT. LABS & VITALS REVIEWED. WILL CONTINUE TO MONITOR.
[2019-07-20 19:47] VITALS: BP 117/57
--- NOTE | 2019-07-21 03:34 | NUR ---
UP MODIFIED INDEPENDENT IN ROOM AND USING WHEEL CHAIR BRIEFLY IN HALLWAY. PLEASANT AND SLEEPING LESS TONIGHT THAN USUAL. ANTICIPATING GOING HOME TODAY. MIRALAX LAST EVENING BY REQUEST SINCE BM FOR THE DAY WAS SMALL. CALLING FOR MEDS AT TIME DUE
[2019-07-21] MEDS ORDERED: DILTIAZEM 24HR120 M1 PO (07:55)
[2019-07-21] MEDS ORDERED: PACERONE 200 M200 M1 PO (07:55)
[2019-07-21] MEDS ORDERED: RISPERIDONE 00.25 M1 PO (07:55)
[2019-07-21] MEDS ORDERED: FLOMAX0.4 MG PO (07:55)
[2019-07-21] MEDS ORDERED: ACIDOPHILUS1 EAC4 PO (07:55)
[2019-07-21] MEDS ORDERED: SENNA-TIME S T1 EACH PO (07:55)
[2019-07-21] MEDS ORDERED: AUGMENTIN 875-1 EACH PO (07:55)
[2019-07-21] MEDS ORDERED: PEPCID20 MG PO (07:55)
[2019-07-21] MEDS ORDERED: PROAIR HFA8.5 GM INH (08:06)
[2019-07-21 12:18] VITALS: BP 119/62
--- NOTE | 2019-07-21 12:27 | NUR ---
cm meet with pt, provider plus delivered his fww for dc today. pt stated going to be staying with sig friend aline hurt [address] [place] [id number]. information passed on to [facility] . friend aline will be picking him up today.
[2019-07-21 12:30] VITALS: BP 119/62
[2019-07-21 12:33] VITALS: BP 119/62
--- NOTE | 2019-07-21 13:42 | NUR ---
ASSUMED CARE OF PT AT 0715. PT IS A&OX4 AND VITAL SIGNS ARE STABLE. PT DENIES PAIN AND PARTICIPATED IN SCHEDULED THERAPIES. ORDERS FOR DISCHARGE TODAY. DISCHARGE EDUCATION PROVIDED TO PATIENT, SCRIPTS GIVEN TO PT, DISCHARGE PAPERS SIGNED, BELONGINGS REMOVED FROM UNIT BY FRIEND. DISCHARGE EDUCATION PROVIDED TO PT. PT TRANSPORTED OFF UNIT BY [facility] AT 1315.
--- NOTE | 2019-07-29 12:00 | H ---
[facility] [place] [address] HISTORY AND PHYSICAL Name: ERICK ÁLVAREZ Room #: 516-1 DIS IN M.R.#: [id number] Admission: 07/11/19 Attend Phys: Otilio Woodson MD Discharge: 07/21/19 Date of : 51 Report #: [id number] THIS REPORT FOR: //name// CC: Otilio Woodson [facility] physician/PCP DATE OF SERVICE: 07/12/2019 POST-ADMISSION PHYSICIAN EVALUATION HISTORY OF PRESENT ILLNESS: Please see my prior consult note dictation. See the history and physical that has been completed. I agree with the assessment. The examination findings and the plan as noted. The patient was diagnosed with right empyema and had a chest tube placed. He met sepsis criteria and was treated in the intensive care unit. Initially had SVT, felt secondary to IV methamphetamine use and acute medical conditions. He was treated with IV amiodarone and converted to normal sinus rhythm and placed on p.o. amiodarone. He was noted to have significant confusion and disorientation. This was diagnosed with hypoxic metabolic encephalopathy, noted to be improving. He was in restraints up until 07/07/2019. He had acute respiratory failure with empyema with intubation, prolonged ventilation and a chest tube, which has subsequently been removed. He was treated for sepsis supraventricular tachycardia. He has a history of cachexia with poor nutritional status. He has been admitted for acute in-hospital inpatient rehabilitation. PAST MEDICAL HISTORY, ALLERGIES, HABITS, SOCIAL HISTORY: Please see the history and physical. MEDICATIONS: Please see the full medication listing. REVIEW OF SYSTEMS: Did not offer any current complaints of chest pain, shortness of breath or abdominal discomfort. PHYSICAL EXAMINATION: GENERAL: A 63-year-old white male who was seen earlier. He was in no distress. VITAL SIGNS: Last recorded temperature 97.8, pulse 85, respirations 20, blood pressure 134/74, alert. HEENT: Appeared benign. Dentition appears poor. Facies were symmetric. Follows basic 1-step commands with some latency to his responses. CHEST: Some diffuse decreased breath sounds. CARDIOVASCULAR: Otherwise sounded regular rate and rhythm. ABDOMEN: Bowel sounds positive, nontender. GENITOURINARY AND RECTAL: Deferred. EXTREMITIES: He has functional range of motion of the upper and lower extremities. Strength is probably a grade 3+ to 4-/5. Min to mod assist for functional mobility and short distance ambulation. No focal calf swelling. [facility] [address] [place] [address] HISTORY AND PHYSICAL Name: ERICK ÁLVAREZ Room #: 516-1 [facility].#: [id number] Admission: 07/11/19 Attend Phys: Otilio Woodson MD Discharge: 07/21/19 Date of : 51 Report #: [id number] ASSESSMENT: A 63-year-old white male with the following problem list: 1. Toxic metabolic encephalopathy, which appears to be improving. 2. Acute respiratory failure, status post extubation. 3. Right empyema, status post chest tube. 4. Sepsis. 5. Supraventricular tachycardia, resolved, treated with amiodarone, now in normal sinus rhythm. 6. Cachexia. 7. IV drug abuse. 8. Tobacco abuse. PLAN: The patient has been admitted for acute in-hospital inpatient rehabilitation. From a postadmission physician evaluation perspective, there are no relevant changes since the preadmission screening. Please see the above review of the prior, current medical and functional conditions and comorbidities. Please see the patient's previous and current functional status. As far as risk of complications, he has the multiple medical comorbidities as noted above. Initial plan of care involves the interdisciplinary acute inpatient rehabilitation program. Functional goals would be for him to become modified independent with transfers, mobility and ADLs, hopefully at least with the walker if not the cane level as well as to further improve as far as his functional independence with cognition. Potential barriers would include his multiple medical comorbidities and decreased functional status. The patient meets diagnostic criteria for an acute in-hospital inpatient rehabilitation stay. He meets medical necessity criteria and we will have the advisor consultant physicians continue to follow. He does have the tolerance for therapies and has appropriate discharge goals back to the home setting. <ELECTRONICALLY SIGNED> By: Otilio Woodson MD 07/29/19 1200 [id number] Otilio Woodson MD /nt
== END 2019-07-21 13:54 | disposition home health service (06) | DRG 91 ==
LOC: ENTRNSPT 07-21 12:58 → EDTRNSPTSTS 07-21 13:05
PROVIDERS: Hospitalist; Internal Medicine Cardiovascular Disease; Nurse Practitioner; Nurse Practitioner Family; Specialist; ADMIT Physical Medicine & Rehabilitation
DX: G92 Toxic encephalopathy (principal); J86.9 Pyothorax without fistula; A41.9 Sepsis, unspecified organism; J96.01 Acute respiratory failure with hypoxia; I47.1 Supraventricular tachycardia; R64 Cachexia; G93.1 Anoxic brain damage, not elsewhere classified; Z68.1 Body mass index [BMI] 19.9 or less, adult; R53.81 Other malaise; F17.210 Nicotine dependence, cigarettes, uncomplicated; G31.84 Mild cognitive impairment of uncertain or unknown etiology; F15.10 Other stimulant abuse, uncomplicated; F41.9 Anxiety disorder, unspecified; D69.6 Thrombocytopenia, unspecified; I95.9 Hypotension, unspecified; E83.51 Hypocalcemia; E87.8 Other disorders of electrolyte and fluid balance, not elsewhere classified; B19.20 Unspecified viral hepatitis C without hepatic coma; Z88.8 Allergy status to other drugs, medicaments and biological substances; Z71.51 Drug abuse counseling and surveillance of drug abuser
CPT/HCPCS: 10112